=== PATIENT | male | born 1960 | race Two or more races ===

== ENCOUNTER 2016-11-22 18:33 | Inpatient (IN) | payer MEDICARE, OTHER ==
[~2016-11-22] VITALS: Ht 170.2 cm; Wt 79.4 kg
[2016-11-22 19:43] LABS: Basophils # (auto) 0 uL; Basophils % (auto) 0.1 % (0.0-2.0); Eosinophils # (auto) 0 uL; Eosinophils % (auto) 0.1 % (0.0-7.0); Hemoglobin 15.6 g/dL (13.5-17.5); Lymphocytes # (auto) 1.3 uL; Lymphocytes % (auto) 26.6 % (10.0-50.0); Mean Corpuscular Hemoglobin 28.1 pg (28.0-32.0); Mean Corpuscular Hgb Conc. 33.1 g/dL (32.0-36.0); Mean Corpuscular Volume 84.9 fL (80.0-100.0); Monocytes # (auto) 0.6 uL; Monocytes % (auto) 11.8 % (0.0-12.0); Neutrophils % (auto) 61.4 % (37.0-80.0); Platelet Count (auto) 147 10^3/uL (140-450); Red Cell Distribution Width 13.8 % (11.6-16.0); White Blood Cell 4.8 10^3/uL (4.4-10.8)
[2016-11-22 19:59] LABS: INR 1.02 (0.9-1.15); Partial Thromboplastin Time 31.4 sec (22.64-33.71); Prothrombin Time 10.5 sec (9.37-12.3)
[2016-11-22 20:01] LABS: Albumin 3.1 g/dL (3.4-5.0); Alkaline Phosphatase 127 U/L (45-117); Anion Gap 12 (5-15); Aspartate Aminotransferase 20 U/L (15-37); BUN/Creatinine Ratio 21.9; Bilirubin, Total 0.4 mg/dL (0.2-1.0); Blood Urea Nitrogen 16 mg/dL (7-18); Calcium 8.2 mg/dL (8.5-10.1); Carbon Dioxide 31 mmol/L (21-32); Chloride 96 mmol/L (98-107); GFR African American 142 mL/min; GFR Non-African American 118 mL/min; Glucose 311 mg/dL (74-106); Potassium 3.9 mmol/L (3.5-5.1); Sodium 139 mmol/L (136-145); Total Protein 6.7 g/dL (6.4-8.2)
[2016-11-22 21:15] LABS: Urine RBC None Seen /hpf (0 - 3)
[2016-11-22 21:23] LABS: Urine Bilirubin Negative (Negative); Urine Blood Negative /uL (Negative); Urine Color Yellow (Yellow); Urine Glucose 4+ mg/dL (Normal); Urine Ketone 3+ (Negative); Urine Nitrite Negative (Negative); Urine Urobilinogen Normal (Negative); Urine pH 5.5 (5.0-8.0)
[2016-11-22] MEDS ORDERED: SODIUM CHLORIDE 0.9% 1,000 ML IV ONE (22:00)
[2016-11-22] MEDS ORDERED: InsuLIN REG 1unit/0.01ml Soln (100units/ml) SC ONE (22:30)
[2016-11-22] MEDS ORDERED: methylPREDNISolone SOD SUCC 125 MG/2 ML VL IV ONE (23:00)
[2016-11-22] MEDS ORDERED: DEXTROSE (50%) 50ML SYRG IV PRN (23:00)
[2016-11-22] MEDS ORDERED: ONDANSETRON HCL 4 MG/2 ML VIAL IV PRN (23:00)
[2016-11-22] MEDS ORDERED: LACTULOSE 20Gm/30ML SOLN PO PRN (23:00)
[2016-11-23 00:15] VITALS: BP 122/47
[2016-11-23] MEDS: SODIUM CHLORIDE 0.9% 1,000 ML IV SCH ×3 (00:44→14:49)
[2016-11-23 00:59] VITALS: BP 148/91
[2016-11-23] MEDS: IPRATROPIUM BROM 0.5 MG/2.5ML INH SOL NEB SCH ×4 (01:59→14:00)
[2016-11-23] MEDS: ALBUTEROL SULF 2.5 MG/0.5ML(0.5%) NEB SOLN NEB SCH ×4 (01:59→14:00)
[2016-11-23] MEDS: ACCU-CHEK COMFORT CURVE STRIP VI SCH ×4 (02:21→14:22)
[2016-11-23] MEDS: InsuLIN REG 1unit/0.01ml Soln (100units/ml) SC SCH ×4 (02:23→14:22)
[2016-11-23 05:00] VITALS: BP 143/80
[2016-11-23 06:09] LABS: Basophils # (auto) 0 uL; Basophils % (auto) 0.2 % (0.0-2.0); Eosinophils # (auto) 0 uL; Hematocrit 46.3 % (41.0-53.0); Hemoglobin 15.1 g/dL (13.5-17.5); Lymphocytes # (auto) 0.7 uL; Lymphocytes % (auto) 15.5 % (10.0-50.0); Mean Corpuscular Hemoglobin 27.8 pg (28.0-32.0); Mean Corpuscular Hgb Conc. 32.7 g/dL (32.0-36.0); Mean Corpuscular Volume 85.1 fL (80.0-100.0); Mean Platelet Volume 8.9 fL (7.4-10.4); Monocytes # (auto) 0.1 uL; Monocytes % (auto) 3.2 % (0.0-12.0); Neutrophils # (auto) 3.7 uL; Neutrophils % (auto) 81.1 % (37.0-80.0); Platelet Count (auto) 150 10^3/uL (140-450); Red Cell Distribution Width 13.9 % (11.6-16.0); White Blood Cell 4.6 10^3/uL (4.4-10.8)
[2016-11-23 06:34] LABS: Albumin 2.8 g/dL (3.4-5.0); BUN/Creatinine Ratio 27.5; Calcium 7.5 mg/dL (8.5-10.1); Potassium 3.5 mmol/L (3.5-5.1)
[2016-11-23 06:38] LABS: Bilirubin, Total 0.3 mg/dL (0.2-1.0); Total Protein 6.7 g/dL (6.4-8.2)
[2016-11-23 09:00] VITALS: BP 116/64
[2016-11-23] MEDS ORDERED: ENOXAPARIN SOD 40 MG/0.4 ML SYRINGE SC SCH (10:00)
[2016-11-23] MEDS ORDERED: methylPREDNISolone SOD SUCC 125 MG/2 ML VL IV SCH (10:00)
[2016-11-23] MEDS ORDERED: ENOXAPARIN SOD 30 MG/0.3 ML SYRINGE SC SCH (10:00)
[2016-11-23 13:00] VITALS: BP 122/70
[2016-11-23] MEDS ORDERED: AZITHROMYCIN 250 MG TAB PO ONE (16:15)
[2016-11-23] MEDS ORDERED: ALBUAER3 IN ×2 (16:23→16:24)
[2016-11-23 17:40] VITALS: BP 122/70
== END 2016-11-23 17:40 | disposition home health service (06) | DRG 917 ==
LOC: ER 18:44 → TELE 18:45 → TELE-WESTW 18:45
PROVIDERS: ADMIT Family Medicine; ATTEND Internal Medicine
DX: T42.6X1A Poisoning by other antiepileptic and sedative-hypnotic drugs, accidental (unintentional), initial encounter (principal); G92 Toxic encephalopathy; E44.0 Moderate protein-calorie malnutrition; J96.10 Chronic respiratory failure, unspecified whether with hypoxia or hypercapnia; E11.65 Type 2 diabetes mellitus with hyperglycemia; I25.10 Atherosclerotic heart disease of native coronary artery without angina pectoris; J44.9 Chronic obstructive pulmonary disease, unspecified; E03.9 Hypothyroidism, unspecified; Z82.49 Family history of ischemic heart disease and other diseases of the circulatory system; F17.210 Nicotine dependence, cigarettes, uncomplicated; E87.8 Other disorders of electrolyte and fluid balance, not elsewhere classified; F19.10 Other psychoactive substance abuse, uncomplicated; T40.2X1A Poisoning by other opioids, accidental (unintentional), initial encounter; J06.9 Acute upper respiratory infection, unspecified; Z68.27 Body mass index [BMI] 27.0-27.9, adult; I25.2 Old myocardial infarction; Z90.49 Acquired absence of other specified parts of digestive tract; Z98.890 Other specified postprocedural states; Z83.3 Family history of diabetes mellitus; Y92.89 Other specified places as the place of occurrence of the external cause
CPT/HCPCS: 36415; 70450; 71010; 80053; 80320; 81001; 82962; 83036; 84484; 85025; 85049; 85610; 85730; 93005; 94640; 94761; 96361; 96372; 96374; G0434; J1815

== ENCOUNTER 2020-11-15 15:11 | Inpatient (IN) | payer OTHER ==
[~2020-11-15] VITALS: Ht 182.9 cm; Wt 82.4 kg
[~2020-11-15 15:11] MED LIST: ALBUAER3 IN
[2020-11-15] MEDS ORDERED: SODIUM CHLORIDE 0.9% 1,000 ML IV ONE ×3 (15:30→19:15)
[2020-11-15] MEDS ORDERED: PIPERACILLIN-TAZOB 3.375GM 100 ML IV ONE (15:30)
[2020-11-15 16:27] LABS: Urine Bacteria FEW /hpf (None Seen); Urine Blood 1+ /uL (Negative); Urine Hyaline Cast MANY /lpf (0 - 2); Urine Mucus FEW (None Seen); Urine Specific Gravity 1.017 (1.001-1.035); Urine WBC 5 /hpf (0 - 3)
[2020-11-15 16:39] LABS: Basophils # (auto) 0 10 ^3/uL (0-0.2); Basophils % (auto) 0.1 % (0.0-2.0); Eosinophils # (auto) 0 10 ^3/uL (0-0.8); Lymphocytes # (auto) 0.7 10 ^3/uL (0.4-5.4); Monocytes # (auto) 0.4 10 ^3/uL (0-1.3)
[2020-11-15 16:41] LABS: Eosinophils % (auto) 0.1 % (0.0-7.0); Hematocrit 50.2 % (41.0-53.0); Hemoglobin 16.1 g/dL (13.5-17.5); Lymphocytes % (auto) 7.4 % (10.0-50.0); Mean Corpuscular Hemoglobin 24.8 pg (28.0-32.0); Mean Corpuscular Volume 77.4 fL (80.0-100.0); Monocytes % (auto) 4.2 % (0.0-12.0); Neutrophils # (auto) 8.3 10 ^3/uL (1.6-8.6); Neutrophils % (auto) 88.2 % (37.0-80.0); Nucleated Red Blood Cells % 0.7 %; Platelet Count (auto) 157 10^3/uL (140-450); Red Blood Cells 6.48 10^6/uL (4.5-5.90); Red Cell Distribution Width 18.3 % (11.8-14.3); White Blood Cell 9.5 10^3/uL (4.4-10.8)
[2020-11-15 16:47] LABS: INR 2.11 (0.9-1.15); Partial Thromboplastin Time 44.4 sec (23.0-31.2)
[2020-11-15 16:54] LABS: Albumin 1.9 g/dL (3.4-5.0); Calcium 7.9 mg/dL (8.5-10.1); Potassium 4.9 mmol/L (3.5-5.1)
[2020-11-15 17:00] LABS: BUN/Creatinine Ratio 34.9; Bilirubin, Total 2.3 mg/dL (0.2-1.0); Total Protein 6.1 g/dL (6.4-8.2)
[2020-11-15] MEDS ORDERED: AZITHROMYCIN 500MG/ 250ML 250 ML IV ONE (17:00)
[2020-11-15] MEDS ORDERED: DexAMETHasone SOD PHOS 10MG/1ML VIAL INJ IV ONE (17:00)
[2020-11-15 17:02] LABS: Lactic Acid w/Reflex 6.4 mmol/L (0.4-2.0)
[2020-11-15] MEDS ORDERED: FAMOTIDINE (10MG/ML) 2ML VL IV ONE (17:15)
[2020-11-15 17:45] VITALS: BP 156/103
[2020-11-15] MEDS ORDERED: MIDAZOLAM DRIP 50 mg/50mL 50 ML IV ONE (17:54)
[2020-11-15] MEDS ORDERED: SODIUM BICARBONATE 8.4 % INJ 50ML VIAL IV ONE (17:58)
[2020-11-15] MEDS ORDERED: PROPOFOL 100 ML IV ONE (19:01)
[2020-11-15 19:06] LABS: CRP High Sensitivity 7.59 mg/dL (< 0.3)
[2020-11-15] MEDS ORDERED: DOPamine 1600MCG/ML D5W 250 ML IV ONE (19:10)
[2020-11-15] MEDS ORDERED: ALBUTEROL SULF 2.5 MG/0.5ML(0.5%) NEB SOLN NEB PRN (19:15)
[2020-11-15] MEDS ORDERED: VANCOMYCIN PER PHARMACY 1,000 MG IV SCH (19:15)
[2020-11-15] MEDS ORDERED: NITROGLYCERIN 0.4 MG SL TAB SL PRN (19:15)
[2020-11-15] MEDS ORDERED: NOREPINEPHRINE 8 MG/250ML KIT 250 ML IV SCH (19:15)
[2020-11-15] MEDS ORDERED: MORPHINE SULF INJ 2 MG/ML SYRINGE 1ML IV PRN (19:15)
[2020-11-15] MEDS: MIDAZOLAM DRIP 50 mg/50mL 50 ML IV SCH (19:30)
[2020-11-15] MEDS: PROPOFOL 100 ML IV SCH (19:30)
[2020-11-15] MEDS ORDERED: REMDESIVIR PER PHARMACY 0 ML IV SCH (19:30)
[2020-11-15] MEDS ORDERED: ALBUTEROL SULF HFA 90MCG INH 200DOSE IN PRN (19:45)
[2020-11-15] MEDS: NOREPINEPHRINE 8 MG/250ML KIT 250 ML IV SCH (19:50)
[2020-11-15] MEDS ORDERED: REMDESIVIR 200 MG in NS 210ml LOADING DOSE ADULT IV ONE (20:00)
[2020-11-15] MEDS: InsuLIN REG 1unit/0.01ml Soln (100units/ml) SC SCH ×2 (21:44→23:59)
[2020-11-15] MEDS: ACCU-CHEK COMFORT CURVE STRIP VI SCH ×2 (21:44→23:53)
[2020-11-15] MEDS: VANCOMYCIN 750mg/250ml 250 ML IV SCH (21:54)
[2020-11-15] MEDS: FAMOTIDINE (10MG/ML) 2ML VL IV SCH (22:00)
[2020-11-15] MEDS: PIPERACILLIN-TAZO 4.5GM 100 ML IV SCH (23:53)
[2020-11-16] MEDS: DOPamine 1600MCG/ML D5W 250 ML IV SCH ×2 (00:05→13:38)
[2020-11-16 01:12] VITALS: BP 134/78
[2020-11-16] MEDS: InsuLIN REG 1unit/0.01ml Soln (100units/ml) SC SCH ×5 (04:19→21:17)
[2020-11-16] MEDS: ACCU-CHEK COMFORT CURVE STRIP VI SCH ×5 (04:26→21:17)
[2020-11-16] MEDS: PIPERACILLIN-TAZO 4.5GM 100 ML IV SCH ×3 (05:56→23:05)
[2020-11-16 06:30] VITALS: BP 117/68
[2020-11-16 06:57] LABS: Lactic Acid w/Reflex 3.3 mmol/L (0.4-2.0)
[2020-11-16 07:11] LABS: Basophils # (auto) 0 10 ^3/uL (0-0.2); Basophils % (auto) 0.2 % (0.0-2.0); Eosinophils # (auto) 0 10 ^3/uL (0-0.8); Monocytes # (auto) 0.3 10 ^3/uL (0-1.3); Monocytes % (auto) 3.1 % (0.0-12.0)
[2020-11-16 07:12] LABS: Hematocrit 46.1 % (41.0-53.0); Hemoglobin 14.6 g/dL (13.5-17.5); Lymphocytes # (auto) 0.6 10 ^3/uL (0.4-5.4); Lymphocytes % (auto) 5.5 % (10.0-50.0); Mean Corpuscular Hemoglobin 24.6 pg (28.0-32.0); Mean Corpuscular Hgb Conc. 31.7 g/dL (32.0-36.0); Mean Corpuscular Volume 77.7 fL (80.0-100.0); Neutrophils # (auto) 9.6 10 ^3/uL (1.6-8.6); Neutrophils % (auto) 91.2 % (37.0-80.0); Nucleated Red Blood Cells % 0.3 %; Platelet Count (auto) 144 10^3/uL (140-450); Red Blood Cells 5.93 10^6/uL (4.5-5.90); Red Cell Distribution Width 18.6 % (11.8-14.3); White Blood Cell 10.5 10^3/uL (4.4-10.8)
[2020-11-16 07:42] LABS: Potassium 4.7 mmol/L (3.5-5.1)
[2020-11-16 07:59] LABS: Albumin 1.8 g/dL (3.4-5.0); BUN/Creatinine Ratio 35.9; Bilirubin, Total 1.5 mg/dL (0.2-1.0); CRP High Sensitivity 7.14 mg/dL (< 0.3); Calcium 7.5 mg/dL (8.5-10.1); Total Protein 5.8 g/dL (6.4-8.2)
[2020-11-16] MEDS: DexAMETHasone SOD PHOS 10MG/1ML VIAL INJ IV SCH (08:01)
[2020-11-16] MEDS: VANCOMYCIN 750mg/250ml 250 ML IV SCH ×2 (08:53→20:30)
[2020-11-16] MEDS ORDERED: ACETAMINOPHEN 650 mg PER 20.3 mL UD GT ONE (09:00)
[2020-11-16] MEDS: FAMOTIDINE (10MG/ML) 2ML VL IV SCH ×2 (10:00→23:05)
[2020-11-16] MEDS: ENOXAPARIN SOD 40 MG/0.4 ML SYRINGE SC SCH (10:00)
[2020-11-16] MEDS ORDERED: METF-370 PO (10:31)
[2020-11-16] MEDS ORDERED: SIMV10TA84 PO (10:31)
[2020-11-16] MEDS ORDERED: GABA100C9 PO (10:31)
[2020-11-16 11:10] VITALS: BP 113/66
[2020-11-16] MEDS: REMDESIVIR 100mg 100 MG in SODIUM CHL 0.9% 230 ML IV SCH (17:00)
[2020-11-16] MEDS: NOREPINEPHRINE 8 MG/250ML KIT 250 ML IV SCH (19:50)
[2020-11-16] MEDS: PROPOFOL 100 ML IV SCH (19:53)
[2020-11-16 20:00] VITALS: BP 124/73
[2020-11-16] MEDS: MIDAZOLAM DRIP 50 mg/50mL 50 ML IV SCH (20:30)
[2020-11-16] MEDS: DEXTROSE (50%) 50ML SYRG IV PRN (21:19)
[2020-11-17] MEDS: InsuLIN REG 1unit/0.01ml Soln (100units/ml) SC SCH ×6 (00:45→21:20)
[2020-11-17] MEDS: ACCU-CHEK COMFORT CURVE STRIP VI SCH ×6 (00:45→21:15)
[2020-11-17] MEDS: DEXTROSE (50%) 50ML SYRG IV PRN (00:55)
[2020-11-17] MEDS: PIPERACILLIN-TAZO 4.5GM 100 ML IV SCH ×3 (06:47→22:25)
[2020-11-17 06:50] LABS: Basophils # (auto) 0 10 ^3/uL (0-0.2); Eosinophils # (auto) 0 10 ^3/uL (0-0.8); Lymphocytes # (auto) 0.6 10 ^3/uL (0.4-5.4); Lymphocytes % (auto) 4.9 % (10.0-50.0); Monocytes # (auto) 0.6 10 ^3/uL (0-1.3)
[2020-11-17 06:52] LABS: Basophils % (auto) 0.1 % (0.0-2.0); Hematocrit 42.4 % (41.0-53.0); Hemoglobin 13.5 g/dL (13.5-17.5); Mean Corpuscular Hemoglobin 24.9 pg (28.0-32.0); Mean Corpuscular Hgb Conc. 31.8 g/dL (32.0-36.0); Mean Corpuscular Volume 78.4 fL (80.0-100.0); Monocytes % (auto) 4.9 % (0.0-12.0); Neutrophils # (auto) 11.6 10 ^3/uL (1.6-8.6); Neutrophils % (auto) 90.1 % (37.0-80.0); Nucleated Red Blood Cells % 0.3 %; Platelet Count (auto) 98 10^3/uL (140-450); Red Blood Cells 5.41 10^6/uL (4.5-5.90); Red Cell Distribution Width 18.3 % (11.8-14.3); White Blood Cell 12.9 10^3/uL (4.4-10.8)
[2020-11-17 06:55] VITALS: BP 113/74
[2020-11-17 07:05] LABS: Potassium 4.3 mmol/L (3.5-5.1)
[2020-11-17 07:18] LABS: Albumin 1.7 g/dL (3.4-5.0); BUN/Creatinine Ratio 31.3; Bilirubin, Total 1.5 mg/dL (0.2-1.0); CRP High Sensitivity 4.44 mg/dL (< 0.3); Calcium 7.7 mg/dL (8.5-10.1); Total Protein 5.7 g/dL (6.4-8.2)
[2020-11-17] MEDS: MIDAZOLAM DRIP 50 mg/50mL 50 ML IV SCH (08:57)
[2020-11-17] MEDS: DexAMETHasone SOD PHOS 10MG/1ML VIAL INJ IV SCH (10:00)
[2020-11-17] MEDS: ENOXAPARIN SOD 40 MG/0.4 ML SYRINGE SC SCH (10:00)
[2020-11-17] MEDS: DOPamine 1600MCG/ML D5W 250 ML IV SCH (11:26)
[2020-11-17] MEDS: VANCOMYCIN 1GM/250ML 250 ML IV SCH ×2 (11:26→22:25)
[2020-11-17] MEDS: FAMOTIDINE (10MG/ML) 2ML VL IV SCH ×2 (11:27→22:25)
[2020-11-17 14:10] VITALS: BP 147/81
[2020-11-17] MEDS: REMDESIVIR 100mg 100 MG in SODIUM CHL 0.9% 230 ML IV SCH (15:17)
[2020-11-17] MEDS: PROPOFOL 100 ML IV SCH (19:00)
[2020-11-17] MEDS: NOREPINEPHRINE 8 MG/250ML KIT 250 ML IV SCH (19:15)
[2020-11-17 19:35] VITALS: BP 130/78
[2020-11-17 22:36] VITALS: BP 140/33
[2020-11-18] MEDS: ACCU-CHEK COMFORT CURVE STRIP VI SCH ×6 (01:09→20:07)
[2020-11-18] MEDS: InsuLIN REG 1unit/0.01ml Soln (100units/ml) SC SCH ×6 (01:10→20:00)
[2020-11-18 02:23] VITALS: BP 152/89
[2020-11-18] MEDS: DOPamine 1600MCG/ML D5W 250 ML IV SCH ×2 (02:24→20:47)
[2020-11-18] MEDS: ACETAMINOPHEN 650 mg PER 20.3 mL UD GT PRN (04:20)
[2020-11-18] MEDS: PIPERACILLIN-TAZO 4.5GM 100 ML IV SCH ×3 (06:10→22:20)
[2020-11-18 06:50] VITALS: BP 141/84
[2020-11-18 09:09] LABS: Basophils # (auto) 0 10 ^3/uL (0-0.2); Basophils % (auto) 0.2 % (0.0-2.0); Eosinophils # (auto) 0 10 ^3/uL (0-0.8); Hematocrit 49.7 % (41.0-53.0); Lymphocytes # (auto) 0.6 10 ^3/uL (0.4-5.4); Platelet Count (auto) 64 10^3/uL (140-450)
[2020-11-18 09:11] LABS: Hemoglobin 15.3 g/dL (13.5-17.5); Lymphocytes % (auto) 5.3 % (10.0-50.0); Mean Corpuscular Hemoglobin 24.5 pg (28.0-32.0); Mean Corpuscular Hgb Conc. 30.8 g/dL (32.0-36.0); Mean Corpuscular Volume 79.6 fL (80.0-100.0); Monocytes # (auto) 0.7 10 ^3/uL (0-1.3); Monocytes % (auto) 6.3 % (0.0-12.0); Neutrophils # (auto) 9.8 10 ^3/uL (1.6-8.6); Neutrophils % (auto) 88.2 % (37.0-80.0); Nucleated Red Blood Cells % 0.6 %; Red Blood Cells 6.25 10^6/uL (4.5-5.90); White Blood Cell 11.1 10^3/uL (4.4-10.8)
[2020-11-18] MEDS: VANCOMYCIN 1GM/250ML 250 ML IV SCH ×2 (09:23→22:20)
[2020-11-18] MEDS: FAMOTIDINE (10MG/ML) 2ML VL IV SCH ×2 (09:25→22:20)
[2020-11-18] MEDS: DexAMETHasone SOD PHOS 10MG/1ML VIAL INJ IV SCH (09:25)
[2020-11-18] MEDS: ENOXAPARIN SOD 40 MG/0.4 ML SYRINGE SC SCH (09:25)
[2020-11-18 09:45] LABS: Potassium 3.7 mmol/L (3.5-5.1)
[2020-11-18 10:00] LABS: Albumin 1.8 g/dL (3.4-5.0); BUN/Creatinine Ratio 23.5; Bilirubin, Total 1.3 mg/dL (0.2-1.0); CRP High Sensitivity 2.71 mg/dL (< 0.3); Calcium 7.8 mg/dL (8.5-10.1); Total Protein 6.2 g/dL (6.4-8.2)
[2020-11-18 12:12] VITALS: BP 118/73
[2020-11-18 16:20] VITALS: BP 134/91
[2020-11-18] MEDS: REMDESIVIR 100mg 100 MG in SODIUM CHL 0.9% 230 ML IV SCH (17:00)
[2020-11-18 18:25] VITALS: BP 154/93
[2020-11-18] MEDS: NOREPINEPHRINE 8 MG/250ML KIT 250 ML IV SCH (18:41)
[2020-11-18] MEDS: PROPOFOL 100 ML IV SCH (18:42)
[2020-11-18] MEDS: MIDAZOLAM DRIP 50 mg/50mL 50 ML IV SCH (20:30)
[2020-11-18 22:40] VITALS: BP 115/72
[2020-11-19] MEDS: ACCU-CHEK COMFORT CURVE STRIP VI SCH ×6 (00:59→20:22)
[2020-11-19] MEDS: InsuLIN REG 1unit/0.01ml Soln (100units/ml) SC SCH ×6 (01:05→20:23)
[2020-11-19 02:20] VITALS: BP 135/73
[2020-11-19] MEDS: ACETAMINOPHEN 650 mg PER 20.3 mL UD GT PRN (03:13)
[2020-11-19 06:22] VITALS: BP 134/79
[2020-11-19] MEDS: PIPERACILLIN-TAZO 4.5GM 100 ML IV SCH ×3 (06:52→21:55)
[2020-11-19 07:54] LABS: Basophils # (auto) 0 10 ^3/uL (0-0.2); Basophils % (auto) 0.1 % (0.0-2.0); Eosinophils # (auto) 0 10 ^3/uL (0-0.8); Lymphocytes # (auto) 0.8 10 ^3/uL (0.4-5.4); Neutrophils # (auto) 10.3 10 ^3/uL (1.6-8.6)
[2020-11-19 07:56] LABS: Hematocrit 50.1 % (41.0-53.0); Hemoglobin 15.8 g/dL (13.5-17.5); Lymphocytes % (auto) 6.4 % (10.0-50.0); Mean Corpuscular Hemoglobin 24.7 pg (28.0-32.0); Mean Corpuscular Hgb Conc. 31.6 g/dL (32.0-36.0); Mean Corpuscular Volume 78.2 fL (80.0-100.0); Monocytes # (auto) 0.7 10 ^3/uL (0-1.3); Monocytes % (auto) 5.7 % (0.0-12.0); Neutrophils % (auto) 87.8 % (37.0-80.0); Nucleated Red Blood Cells % 0.9 %; Platelet Count (auto) 66 10^3/uL (140-450); Red Blood Cells 6.41 10^6/uL (4.5-5.90); Red Cell Distribution Width 18.9 % (11.8-14.3); White Blood Cell 11.7 10^3/uL (4.4-10.8)
[2020-11-19 08:05] LABS: Potassium 3.3 mmol/L (3.5-5.1)
[2020-11-19 08:21] LABS: Albumin 1.7 g/dL (3.4-5.0); BUN/Creatinine Ratio 21.2; Bilirubin, Total 1.9 mg/dL (0.2-1.0); CRP High Sensitivity 1.9 mg/dL (< 0.3); Calcium 7.7 mg/dL (8.5-10.1); Total Protein 6.1 g/dL (6.4-8.2)
[2020-11-19] MEDS: MIDAZOLAM DRIP 50 mg/50mL 50 ML IV SCH ×3 (09:00→16:10)
[2020-11-19] MEDS: PROPOFOL 100 ML IV SCH ×2 (09:05→13:00)
[2020-11-19] MEDS: VANCOMYCIN 1GM/250ML 250 ML IV SCH ×2 (10:00→18:16)
[2020-11-19] MEDS: DexAMETHasone SOD PHOS 10MG/1ML VIAL INJ IV SCH (10:28)
[2020-11-19] MEDS: ENOXAPARIN SOD 40 MG/0.4 ML SYRINGE SC SCH (10:28)
[2020-11-19] MEDS: FAMOTIDINE (10MG/ML) 2ML VL IV SCH ×2 (10:28→21:54)
[2020-11-19 13:31] VITALS: BP 133/85
[2020-11-19] MEDS: DOPamine 1600MCG/ML D5W 250 ML IV SCH (14:30)
[2020-11-19] MEDS: NOREPINEPHRINE 8 MG/250ML KIT 250 ML IV SCH (14:30)
[2020-11-19] MEDS: FUROSEMIDE 20 MG/2 ML VIAL IV SCH (18:00)
[2020-11-19] MEDS: REMDESIVIR 100mg 100 MG in SODIUM CHL 0.9% 230 ML IV SCH (18:04)
[2020-11-19 18:35] VITALS: BP 107/73
[2020-11-19 22:40] VITALS: BP 112/68
[2020-11-20] MEDS: ACCU-CHEK COMFORT CURVE STRIP VI SCH ×7 (00:03→23:58)
[2020-11-20 02:32] VITALS: BP 129/85
[2020-11-20] MEDS: InsuLIN REG 1unit/0.01ml Soln (100units/ml) SC SCH ×6 (04:00→20:00)
[2020-11-20] MEDS: PIPERACILLIN-TAZO 4.5GM 100 ML IV SCH ×3 (06:36→20:42)
[2020-11-20] MEDS: VANCOMYCIN 1GM/250ML 250 ML IV SCH ×2 (06:36→18:30)
[2020-11-20] MEDS: FUROSEMIDE 20 MG/2 ML VIAL IV SCH ×2 (06:51→18:30)
[2020-11-20 07:12] VITALS: BP 97/64
[2020-11-20] MEDS ORDERED: POTASSIUM CHL 20 Meq TABLET PO ONE (07:30)
[2020-11-20 09:16] LABS: Eosinophils # (auto) 0 10 ^3/uL (0-0.8); Hemoglobin 15.9 g/dL (13.5-17.5); Lymphocytes # (auto) 0.7 10 ^3/uL (0.4-5.4); Lymphocytes % (auto) 4.8 % (10.0-50.0); Mean Corpuscular Hemoglobin 24.2 pg (28.0-32.0); Neutrophils # (auto) 12.8 10 ^3/uL (1.6-8.6)
[2020-11-20 09:17] LABS: Basophils # (auto) 0 10 ^3/uL (0-0.2); Basophils % (auto) 0.3 % (0.0-2.0); Mean Corpuscular Hgb Conc. 31.2 g/dL (32.0-36.0); Mean Corpuscular Volume 77.7 fL (80.0-100.0); Monocytes # (auto) 0.8 10 ^3/uL (0-1.3); Monocytes % (auto) 5.7 % (0.0-12.0); Neutrophils % (auto) 89.2 % (37.0-80.0); Nucleated Red Blood Cells % 0.5 %; Platelet Count (auto) 65 10^3/uL (140-450); Red Blood Cells 6.57 10^6/uL (4.5-5.90); Red Cell Distribution Width 18.9 % (11.8-14.3); White Blood Cell 14.3 10^3/uL (4.4-10.8)
[2020-11-20] MEDS: DOPamine 1600MCG/ML D5W 250 ML IV SCH (09:24)
[2020-11-20 09:40] LABS: Alanine Aminotransferase 36 U/L (16-61); Alkaline Phosphatase 259 U/L (45-117); Aspartate Aminotransferase 29 U/L (15-37); BUN/Creatinine Ratio 31.5; Bilirubin, Total 1.8 mg/dL (0.2-1.0); Blood Urea Nitrogen 23 mg/dL (7-18); Carbon Dioxide 19 mmol/L (21-32); GFR African American 140 mL/min; GFR Non-African American 116 mL/min; Total Protein 5.5 g/dL (6.4-8.2)
[2020-11-20 09:45] LABS: Glucose 363 mg/dL (74-106)
[2020-11-20] MEDS: DexAMETHasone SOD PHOS 10MG/1ML VIAL INJ IV SCH (10:35)
[2020-11-20] MEDS: FAMOTIDINE (10MG/ML) 2ML VL IV SCH ×2 (10:35→20:42)
[2020-11-20] MEDS: ENOXAPARIN SOD 40 MG/0.4 ML SYRINGE SC SCH (10:35)
[2020-11-20 11:10] LABS: Albumin 1.7 g/dL (3.4-5.0); Calcium 7.5 mg/dL (8.5-10.1)
[2020-11-20 11:11] LABS: Anion Gap 23 (5-15); Chloride 103 mmol/L (98-107); Sodium 145 mmol/L (136-145)
[2020-11-20 11:15] LABS: Potassium 2.7 mmol/L (3.5-5.1)
[2020-11-20] MEDS ORDERED: POTASSIUM CHLORIDE 60 MEQ, LIDOCAINE 1% (LOCAL ANESTH.) 6 ML in SODIUM CHL 0.9% 500 ML IV ONE (11:30)
[2020-11-20 13:14] VITALS: BP 76/53
[2020-11-20] MEDS ORDERED: FUROSEMIDE 40 MG/4 ML VIAL ONE (17:54)
[2020-11-20 18:25] VITALS: BP 108/73
[2020-11-20] MEDS: PROPOFOL 100 ML IV SCH (19:14)
[2020-11-20] MEDS: NOREPINEPHRINE 8 MG/250ML KIT 250 ML IV SCH (19:20)
[2020-11-20] MEDS: MIDAZOLAM DRIP 50 mg/50mL 50 ML IV SCH (20:30)
[2020-11-20] MEDS: ACETAMINOPHEN 650 mg PER 20.3 mL UD GT PRN (20:33)
[2020-11-20 22:25] VITALS: BP 106/67
[2020-11-21] MEDS: InsuLIN REG 1unit/0.01ml Soln (100units/ml) SC SCH ×6 (00:02→20:54)
[2020-11-21] MEDS: DOPamine 1600MCG/ML D5W 250 ML IV SCH ×2 (00:03→22:19)
[2020-11-21 02:15] VITALS: BP 108/71
[2020-11-21] MEDS: ACCU-CHEK COMFORT CURVE STRIP VI SCH ×5 (04:13→20:52)
[2020-11-21 05:12] LABS: Basophils # (auto) 0.1 10 ^3/uL (0-0.2); Basophils % (auto) 0.5 % (0.0-2.0); Eosinophils # (auto) 0 10 ^3/uL (0-0.8); Lymphocytes # (auto) 0.4 10 ^3/uL (0.4-5.4); Monocytes # (auto) 0.5 10 ^3/uL (0-1.3); Monocytes % (auto) 4.3 % (0.0-12.0); Nucleated Red Blood Cells % 0.1 %
[2020-11-21 05:13] LABS: Hematocrit 45.3 % (41.0-53.0); Hemoglobin 14.5 g/dL (13.5-17.5); Lymphocytes % (auto) 3.4 % (10.0-50.0); Mean Corpuscular Hemoglobin 24.8 pg (28.0-32.0); Mean Corpuscular Volume 77.6 fL (80.0-100.0); Neutrophils # (auto) 11.6 10 ^3/uL (1.6-8.6); Neutrophils % (auto) 91.8 % (37.0-80.0); Platelet Count (auto) 71 10^3/uL (140-450); Red Blood Cells 5.83 10^6/uL (4.5-5.90); White Blood Cell 12.7 10^3/uL (4.4-10.8)
[2020-11-21] MEDS: PIPERACILLIN-TAZO 4.5GM 100 ML IV SCH ×3 (05:29→22:19)
[2020-11-21 05:31] LABS: Albumin 1.6 g/dL (3.4-5.0); Calcium 7.6 mg/dL (8.5-10.1); Potassium 3.1 mmol/L (3.5-5.1)
[2020-11-21 05:35] LABS: BUN/Creatinine Ratio 34.1; Bilirubin, Total 1.8 mg/dL (0.2-1.0)
[2020-11-21] MEDS: FUROSEMIDE 20 MG/2 ML VIAL IV SCH ×2 (05:47→17:19)
[2020-11-21] MEDS: VANCOMYCIN 1GM/250ML 250 ML IV SCH ×2 (06:21→17:18)
[2020-11-21 06:35] VITALS: BP 105/67
[2020-11-21] MEDS: DexAMETHasone SOD PHOS 10MG/1ML VIAL INJ IV SCH (07:47)
[2020-11-21] MEDS: FAMOTIDINE (10MG/ML) 2ML VL IV SCH ×2 (07:47→22:19)
[2020-11-21] MEDS: ENOXAPARIN SOD 40 MG/0.4 ML SYRINGE SC SCH (07:47)
[2020-11-21 10:41] LABS: Lactic Acid w/Reflex 4.1 mmol/L (0.4-2.0)
[2020-11-21 15:05] VITALS: BP 105/65
[2020-11-21] MEDS: POTASSIUM CHL 20MEQ/100ML 100 ML IV SCH ×2 (16:15→16:51)
[2020-11-21] MEDS ORDERED: POTASSIUM CHLORIDE 40 MEQ, LIDOCAINE 1% (LOCAL ANESTH.) 4 ML in SODIUM CHL 0.9% 250 ML IV ONE (17:00)
[2020-11-21] MEDS ORDERED: FUROSEMIDE 40 MG/4 ML VIAL ONE (17:16)
[2020-11-21] MEDS: PROPOFOL 100 ML IV SCH (18:16)
[2020-11-21] MEDS: NOREPINEPHRINE 8 MG/250ML KIT 250 ML IV SCH (18:17)
[2020-11-21 19:16] VITALS: BP 107/68
[2020-11-21] MEDS: MIDAZOLAM DRIP 50 mg/50mL 50 ML IV SCH (20:30)
[2020-11-21 22:35] VITALS: BP 97/63
[2020-11-22] MEDS: ACCU-CHEK COMFORT CURVE STRIP VI SCH ×6 (00:41→21:30)
[2020-11-22] MEDS: InsuLIN REG 1unit/0.01ml Soln (100units/ml) SC SCH ×6 (00:44→21:45)
[2020-11-22 02:19] VITALS: BP 97/59
[2020-11-22] MEDS ORDERED: ONDANSETRON HCL 4 MG/2 ML VIAL ONE (04:15)
[2020-11-22] MEDS: PIPERACILLIN-TAZO 4.5GM 100 ML IV SCH ×3 (05:45→23:00)
[2020-11-22] MEDS: VANCOMYCIN 1GM/250ML 250 ML IV SCH ×2 (05:45→18:21)
[2020-11-22] MEDS ORDERED: FUROSEMIDE 40 MG/4 ML VIAL ONE (05:47)
[2020-11-22 06:03] LABS: Basophils # (auto) 0 10 ^3/uL (0-0.2); Eosinophils # (auto) 0 10 ^3/uL (0-0.8); Hemoglobin 13.4 g/dL (13.5-17.5); Mean Corpuscular Hemoglobin 24.3 pg (28.0-32.0); Monocytes # (auto) 0.4 10 ^3/uL (0-1.3); White Blood Cell 10.8 10^3/uL (4.4-10.8)
[2020-11-22 06:06] LABS: Basophils % (auto) 0.1 % (0.0-2.0); Hematocrit 42.5 % (41.0-53.0); Lymphocytes # (auto) 0.5 10 ^3/uL (0.4-5.4); Lymphocytes % (auto) 4.4 % (10.0-50.0); Mean Corpuscular Hgb Conc. 31.5 g/dL (32.0-36.0); Mean Corpuscular Volume 77.3 fL (80.0-100.0); Monocytes % (auto) 3.7 % (0.0-12.0); Neutrophils % (auto) 91.8 % (37.0-80.0); Platelet Count (auto) 75 10^3/uL (140-450); Red Cell Distribution Width 19.2 % (11.8-14.3)
[2020-11-22 06:20] LABS: Albumin 1.5 g/dL (3.4-5.0); Calcium 7.3 mg/dL (8.5-10.1)
[2020-11-22 06:24] LABS: Bilirubin, Total 1.9 mg/dL (0.2-1.0); Total Protein 4.8 g/dL (6.4-8.2)
[2020-11-22 06:50] VITALS: BP 95/54
[2020-11-22] MEDS: POTASSIUM CHL 20MEQ/100ML 100 ML IV SCH ×3 (08:12→11:01)
[2020-11-22] MEDS: FAMOTIDINE (10MG/ML) 2ML VL IV SCH ×2 (08:20→23:00)
[2020-11-22] MEDS: DexAMETHasone SOD PHOS 10MG/1ML VIAL INJ IV SCH (08:20)
[2020-11-22] MEDS: ENOXAPARIN SOD 40 MG/0.4 ML SYRINGE SC SCH (08:21)
[2020-11-22 09:20] VITALS: BP 94/58
[2020-11-22 15:16] VITALS: BP 113/68
[2020-11-22] MEDS: DOPamine 1600MCG/ML D5W 250 ML IV SCH (16:31)
[2020-11-22] MEDS: FUROSEMIDE 40 MG/4 ML VIAL IV SCH (17:12)
[2020-11-22] MEDS: PROPOFOL 100 ML IV SCH (18:07)
[2020-11-22] MEDS: NOREPINEPHRINE 8 MG/250ML KIT 250 ML IV SCH (18:08)
[2020-11-22 18:35] VITALS: BP 115/69
[2020-11-22] MEDS: MIDAZOLAM DRIP 50 mg/50mL 50 ML IV SCH (20:30)
[2020-11-22 22:14] VITALS: BP 101/65
[2020-11-23] MEDS: ACCU-CHEK COMFORT CURVE STRIP VI SCH ×6 (00:30→20:00)
[2020-11-23] MEDS: InsuLIN REG 1unit/0.01ml Soln (100units/ml) SC SCH ×6 (00:40→20:00)
[2020-11-23 02:15] VITALS: BP 112/67
[2020-11-23] MEDS: VANCOMYCIN 1GM/250ML 250 ML IV SCH ×2 (06:27→18:23)
[2020-11-23] MEDS: PIPERACILLIN-TAZO 4.5GM 100 ML IV SCH ×3 (06:28→22:00)
[2020-11-23] MEDS: FUROSEMIDE 40 MG/4 ML VIAL IV SCH (06:28)
[2020-11-23 06:50] VITALS: BP 96/54
[2020-11-23 07:33] LABS: Potassium 3.1 mmol/L (3.5-5.1)
[2020-11-23 07:34] LABS: Basophils # (auto) 0 10 ^3/uL (0-0.2); Eosinophils # (auto) 0 10 ^3/uL (0-0.8); Eosinophils % (auto) 0.1 % (0.0-7.0); Lymphocytes # (auto) 0.5 10 ^3/uL (0.4-5.4); Monocytes # (auto) 0.4 10 ^3/uL (0-1.3); Monocytes % (auto) 3.1 % (0.0-12.0)
[2020-11-23 07:39] LABS: Basophils % (auto) 0.4 % (0.0-2.0); Hematocrit 42.8 % (41.0-53.0); Hemoglobin 13.1 g/dL (13.5-17.5); Lymphocytes % (auto) 4.1 % (10.0-50.0); Mean Corpuscular Hemoglobin 23.8 pg (28.0-32.0); Mean Corpuscular Hgb Conc. 30.5 g/dL (32.0-36.0); Mean Corpuscular Volume 78.1 fL (80.0-100.0); Neutrophils # (auto) 10.7 10 ^3/uL (1.6-8.6); Neutrophils % (auto) 92.3 % (37.0-80.0); Platelet Count (auto) 82 10^3/uL (140-450); Red Blood Cells 5.49 10^6/uL (4.5-5.90); Red Cell Distribution Width 18.8 % (11.8-14.3); White Blood Cell 11.6 10^3/uL (4.4-10.8)
[2020-11-23 07:44] LABS: Albumin 1.5 g/dL (3.4-5.0); BUN/Creatinine Ratio 58.2; Bilirubin, Total 1.5 mg/dL (0.2-1.0); Calcium 7.8 mg/dL (8.5-10.1)
[2020-11-23] MEDS ORDERED: SODIUM CHLORIDE 0.9% 2,000 ML IV ONE (09:00)
[2020-11-23] MEDS: DexAMETHasone SOD PHOS 10MG/1ML VIAL INJ IV SCH (09:02)
[2020-11-23] MEDS: FAMOTIDINE (10MG/ML) 2ML VL IV SCH ×2 (09:02→22:00)
[2020-11-23] MEDS: DOPamine 1600MCG/ML D5W 250 ML IV SCH (09:02)
[2020-11-23] MEDS: ENOXAPARIN SOD 40 MG/0.4 ML SYRINGE SC SCH (09:02)
[2020-11-23] MEDS ORDERED: SODIUM CHLORIDE 0.9% 1,000 ML IV SCH (11:00)
[2020-11-23] MEDS: POTASSIUM CHL 20MEQ/100ML 100 ML IV SCH ×3 (11:03→14:00)
[2020-11-23 13:48] VITALS: BP 101/62
[2020-11-23] MEDS: NOREPINEPHRINE 8 MG/250ML KIT 250 ML IV SCH (18:25)
[2020-11-23] MEDS: PROPOFOL 100 ML IV SCH (18:25)
[2020-11-23 18:40] VITALS: BP 104/64
[2020-11-23] MEDS: MIDAZOLAM DRIP 50 mg/50mL 50 ML IV SCH (20:30)
[2020-11-23 23:10] VITALS: BP 110/67
[2020-11-24 02:20] VITALS: BP 124/77
[2020-11-24] MEDS: ACCU-CHEK COMFORT CURVE STRIP VI SCH ×6 (04:00→20:00)
[2020-11-24] MEDS: InsuLIN REG 1unit/0.01ml Soln (100units/ml) SC SCH ×6 (04:00→20:00)
[2020-11-24] MEDS: DOPamine 1600MCG/ML D5W 250 ML IV SCH ×2 (05:14→23:51)
[2020-11-24] MEDS: PIPERACILLIN-TAZO 4.5GM 100 ML IV SCH ×3 (05:30→21:54)
[2020-11-24] MEDS: VANCOMYCIN 1GM/250ML 250 ML IV SCH ×2 (05:30→18:00)
[2020-11-24 06:20] VITALS: BP 113/73
[2020-11-24 06:57] LABS: Basophils # (auto) 0 10 ^3/uL (0-0.2); Eosinophils # (auto) 0 10 ^3/uL (0-0.8); Hematocrit 40.8 % (41.0-53.0); Hemoglobin 12.7 g/dL (13.5-17.5); Lymphocytes # (auto) 0.4 10 ^3/uL (0.4-5.4); Mean Corpuscular Hemoglobin 24.3 pg (28.0-32.0); Neutrophils # (auto) 12.1 10 ^3/uL (1.6-8.6); Platelet Count (auto) 102 10^3/uL (140-450)
[2020-11-24 07:00] LABS: Basophils % (auto) 0.2 % (0.0-2.0); Lymphocytes % (auto) 2.9 % (10.0-50.0); Mean Corpuscular Hgb Conc. 31.1 g/dL (32.0-36.0); Monocytes # (auto) 0.5 10 ^3/uL (0-1.3); Monocytes % (auto) 4.2 % (0.0-12.0); Neutrophils % (auto) 92.7 % (37.0-80.0); Red Blood Cells 5.23 10^6/uL (4.5-5.90); Red Cell Distribution Width 19.2 % (11.8-14.3); White Blood Cell 13.1 10^3/uL (4.4-10.8)
[2020-11-24 07:20] LABS: Albumin 1.5 g/dL (3.4-5.0); BUN/Creatinine Ratio 63.4; Calcium 7.4 mg/dL (8.5-10.1); Potassium 3.5 mmol/L (3.5-5.1)
[2020-11-24 07:22] LABS: Bilirubin, Total 1.6 mg/dL (0.2-1.0); Total Protein 4.9 g/dL (6.4-8.2)
[2020-11-24] MEDS: ENOXAPARIN SOD 40 MG/0.4 ML SYRINGE SC SCH (08:40)
[2020-11-24] MEDS: FAMOTIDINE (10MG/ML) 2ML VL IV SCH ×2 (08:40→21:54)
[2020-11-24] MEDS: DexAMETHasone SOD PHOS 10MG/1ML VIAL INJ IV SCH (08:40)
[2020-11-24 14:00] VITALS: BP 126/77
[2020-11-24 18:40] VITALS: BP 130/82
[2020-11-24] MEDS: PROPOFOL 100 ML IV SCH (19:00)
[2020-11-24] MEDS: NOREPINEPHRINE 8 MG/250ML KIT 250 ML IV SCH (19:15)
[2020-11-24] MEDS: MIDAZOLAM DRIP 50 mg/50mL 50 ML IV SCH (20:30)
[2020-11-25] VITALS (32 sets, daily range): BP systolic 101–144; BP diastolic 65–89
[2020-11-25] MEDS: ACCU-CHEK COMFORT CURVE STRIP VI SCH ×6 (03:51→20:00)
[2020-11-25] MEDS: InsuLIN REG 1unit/0.01ml Soln (100units/ml) SC SCH ×6 (03:52→20:00)
[2020-11-25] MEDS: PIPERACILLIN-TAZO 4.5GM 100 ML IV SCH ×3 (06:00→21:50)
[2020-11-25] MEDS: VANCOMYCIN 1GM/250ML 250 ML IV SCH ×2 (06:00→18:59)
[2020-11-25 08:29] LABS: Basophils # (auto) 0 10 ^3/uL (0-0.2); Eosinophils # (auto) 0 10 ^3/uL (0-0.8); Eosinophils % (auto) 0.1 % (0.0-7.0); Lymphocytes # (auto) 0.5 10 ^3/uL (0.4-5.4); Monocytes # (auto) 0.9 10 ^3/uL (0-1.3)
[2020-11-25 08:31] LABS: Basophils % (auto) 0.2 % (0.0-2.0); Hematocrit 42.7 % (41.0-53.0); Hemoglobin 13.3 g/dL (13.5-17.5); Lymphocytes % (auto) 3.2 % (10.0-50.0); Mean Corpuscular Hemoglobin 24.6 pg (28.0-32.0); Mean Corpuscular Hgb Conc. 31.3 g/dL (32.0-36.0); Mean Corpuscular Volume 78.6 fL (80.0-100.0); Monocytes % (auto) 5.9 % (0.0-12.0); Neutrophils # (auto) 13.9 10 ^3/uL (1.6-8.6); Neutrophils % (auto) 90.6 % (37.0-80.0); Platelet Count (auto) 150 10^3/uL (140-450); Red Blood Cells 5.42 10^6/uL (4.5-5.90); Red Cell Distribution Width 19.3 % (11.8-14.3); White Blood Cell 15.4 10^3/uL (4.4-10.8)
[2020-11-25 08:42] LABS: Potassium 3.3 mmol/L (3.5-5.1)
[2020-11-25 08:59] LABS: Albumin 1.6 g/dL (3.4-5.0); BUN/Creatinine Ratio 52.1; Bilirubin, Total 1.5 mg/dL (0.2-1.0); Total Protein 5.8 g/dL (6.4-8.2)
[2020-11-25] MEDS: DexAMETHasone SOD PHOS 10MG/1ML VIAL INJ IV SCH (10:00)
[2020-11-25] MEDS: FAMOTIDINE (10MG/ML) 2ML VL IV SCH ×2 (10:00→21:49)
[2020-11-25] MEDS: ENOXAPARIN SOD 40 MG/0.4 ML SYRINGE SC SCH (10:00)
[2020-11-25] MEDS: DOPamine 1600MCG/ML D5W 250 ML IV SCH (18:14)
[2020-11-25] MEDS: PROPOFOL 100 ML IV SCH (19:00)
[2020-11-25] MEDS: NOREPINEPHRINE 8 MG/250ML KIT 250 ML IV SCH (19:15)
[2020-11-25] MEDS: POTASSIUM CHL 20MEQ/100ML 100 ML IV SCH ×2 (20:00→23:00)
[2020-11-25] MEDS: MORPHINE SULFATE 4 MG/ML SYR/VIAL IV PRN (20:00)
[2020-11-25] MEDS: MIDAZOLAM DRIP 50 mg/50mL 50 ML IV SCH (20:30)
[2020-11-26] VITALS (92 sets, daily range): BP systolic 92–160; BP diastolic 55–94
[2020-11-26] MEDS: MORPHINE SULFATE 4 MG/ML SYR/VIAL IV PRN ×5 (04:00→18:58)
[2020-11-26] MEDS: ACCU-CHEK COMFORT CURVE STRIP VI SCH ×6 (04:00→22:10)
[2020-11-26] MEDS: InsuLIN REG 1unit/0.01ml Soln (100units/ml) SC SCH ×6 (04:00→22:00)
[2020-11-26 04:32] LABS: Basophils # (auto) 0 10 ^3/uL (0-0.2); Basophils % (auto) 0.1 % (0.0-2.0); Eosinophils # (auto) 0 10 ^3/uL (0-0.8); Red Cell Distribution Width 19.3 % (11.8-14.3)
[2020-11-26 04:33] LABS: Hematocrit 40.1 % (41.0-53.0); Hemoglobin 12.3 g/dL (13.5-17.5); Lymphocytes # (auto) 0.7 10 ^3/uL (0.4-5.4); Lymphocytes % (auto) 5.4 % (10.0-50.0); Mean Corpuscular Hemoglobin 24.1 pg (28.0-32.0); Mean Corpuscular Hgb Conc. 30.8 g/dL (32.0-36.0); Mean Corpuscular Volume 78.3 fL (80.0-100.0); Monocytes # (auto) 0.7 10 ^3/uL (0-1.3); Monocytes % (auto) 5.7 % (0.0-12.0); Neutrophils # (auto) 10.7 10 ^3/uL (1.6-8.6); Neutrophils % (auto) 88.8 % (37.0-80.0); Platelet Count (auto) 159 10^3/uL (140-450); Red Blood Cells 5.12 10^6/uL (4.5-5.90); White Blood Cell 12.1 10^3/uL (4.4-10.8)
[2020-11-26 04:49] LABS: Albumin 1.5 g/dL (3.4-5.0); Potassium 3.7 mmol/L (3.5-5.1)
[2020-11-26 04:54] LABS: BUN/Creatinine Ratio 57.9; Bilirubin, Total 1.4 mg/dL (0.2-1.0); Total Protein 5.4 g/dL (6.4-8.2)
[2020-11-26] MEDS: VANCOMYCIN 1GM/250ML 250 ML IV SCH ×2 (06:00→20:15)
[2020-11-26] MEDS: PIPERACILLIN-TAZO 4.5GM 100 ML IV SCH ×3 (06:24→22:09)
[2020-11-26] MEDS: FAMOTIDINE (10MG/ML) 2ML VL IV SCH ×2 (09:40→22:09)
[2020-11-26] MEDS: ENOXAPARIN SOD 40 MG/0.4 ML SYRINGE SC SCH (09:40)
[2020-11-26] MEDS: DexAMETHasone SOD PHOS 10MG/1ML VIAL INJ IV SCH (09:41)
[2020-11-26] MEDS: DOPamine 1600MCG/ML D5W 250 ML IV SCH (11:48)
[2020-11-26] MEDS: LEVOTHYROXINE SODIUM 100 MCG/5 ML INJ IV SCH (13:00)
[2020-11-26] MEDS ORDERED: DEXTROSE (50%) 50ML SYRG IV PRN (16:00)
[2020-11-26] MEDS ORDERED: TPN PER PHARMACY 0 ML IV SCH (19:00)
[2020-11-26] MEDS: PROPOFOL 100 ML IV SCH (19:00)
[2020-11-26] MEDS: NOREPINEPHRINE 8 MG/250ML KIT 250 ML IV SCH (19:15)
[2020-11-26] MEDS: MIDAZOLAM DRIP 50 mg/50mL 50 ML IV SCH (20:17)
[2020-11-26] MEDS: ACETAMINOPHEN 650 mg PER 20.3 mL UD GT PRN (21:00)
[2020-11-27] VITALS (96 sets, daily range): BP systolic 76–159; BP diastolic 48–93
[2020-11-27] MEDS: VANCOMYCIN 1GM/250ML 250 ML IV SCH ×2 (05:49→17:41)
[2020-11-27 05:59] LABS: Basophils # (auto) 0 10 ^3/uL (0-0.2); Eosinophils # (auto) 0 10 ^3/uL (0-0.8); Hemoglobin 12.3 g/dL (13.5-17.5); Lymphocytes # (auto) 0.7 10 ^3/uL (0.4-5.4); Mean Corpuscular Hemoglobin 24.5 pg (28.0-32.0)
[2020-11-27 06:01] LABS: Basophils % (auto) 0.2 % (0.0-2.0); Hematocrit 38.7 % (41.0-53.0); Mean Corpuscular Hgb Conc. 31.7 g/dL (32.0-36.0); Mean Corpuscular Volume 77.3 fL (80.0-100.0); Monocytes # (auto) 0.8 10 ^3/uL (0-1.3); Monocytes % (auto) 6.4 % (0.0-12.0); Neutrophils # (auto) 10.6 10 ^3/uL (1.6-8.6); Neutrophils % (auto) 87.4 % (37.0-80.0); Platelet Count (auto) 153 10^3/uL (140-450); Red Blood Cells 5.01 10^6/uL (4.5-5.90); Red Cell Distribution Width 18.6 % (11.8-14.3); White Blood Cell 12.2 10^3/uL (4.4-10.8)
[2020-11-27 06:03] LABS: Albumin 1.6 g/dL (3.4-5.0); Calcium 7.9 mg/dL (8.5-10.1); Magnesium 1.9 mg/dL (1.6-2.6); Potassium 3.3 mmol/L (3.5-5.1)
[2020-11-27 06:07] LABS: BUN/Creatinine Ratio 47.4; Bilirubin, Total 1.6 mg/dL (0.2-1.0); Total Protein 5.7 g/dL (6.4-8.2)
[2020-11-27] MEDS: DOPamine 1600MCG/ML D5W 250 ML IV SCH (06:33)
[2020-11-27] MEDS: PIPERACILLIN-TAZO 4.5GM 100 ML IV SCH ×3 (06:34→22:20)
[2020-11-27] MEDS: ACCU-CHEK COMFORT CURVE STRIP VI SCH ×3 (06:34→17:43)
[2020-11-27] MEDS: InsuLIN REG 1unit/0.01ml Soln (100units/ml) SC SCH ×3 (06:36→17:43)
[2020-11-27] MEDS ORDERED: POTASSIUM PHOSPHATE 26.4 MEQ in SODIUM CHL 0.9% 100 ML IV ONE (08:45)
[2020-11-27] MEDS: DexAMETHasone SOD PHOS 10MG/1ML VIAL INJ IV SCH (10:15)
[2020-11-27] MEDS: FAMOTIDINE (10MG/ML) 2ML VL IV SCH ×2 (10:18→22:20)
[2020-11-27] MEDS: ENOXAPARIN SOD 40 MG/0.4 ML SYRINGE SC SCH (10:21)
[2020-11-27] MEDS: LEVOTHYROXINE SODIUM 100 MCG/5 ML INJ IV SCH (10:21)
[2020-11-27] MEDS ORDERED: ACETAMINOPHEN IV 1000 MG/100ML (10MG/ML) IV PRN ×2 (16:45)
[2020-11-27] MEDS ORDERED: METOPROLOL TARTRATE 1MG/1ML-5ML VIAL IV PRN (18:00)
[2020-11-27] MEDS: PROPOFOL 100 ML IV SCH (18:10)
[2020-11-27] MEDS ORDERED: TPN PER PHARMACY IV NR ×8 (20:00)
[2020-11-27] MEDS: MIDAZOLAM DRIP 50 mg/50mL 50 ML IV SCH (20:30)
[2020-11-27] MEDS: ACETAMINOPHEN 650 mg PER 20.3 mL UD GT PRN (21:00)
[2020-11-27] MEDS: NOREPINEPHRINE 8 MG/250ML KIT 250 ML IV SCH (21:30)
[2020-11-28] VITALS (95 sets, daily range): BP systolic 98–144; BP diastolic 56–74
[2020-11-28] MEDS: DOPamine 1600MCG/ML D5W 250 ML IV SCH (01:23)
[2020-11-28] MEDS: PIPERACILLIN-TAZO 4.5GM 100 ML IV SCH ×3 (06:04→22:04)
[2020-11-28] MEDS: ACCU-CHEK COMFORT CURVE STRIP VI SCH ×4 (06:05→17:42)
[2020-11-28 06:29] LABS: Basophils # (auto) 0 10 ^3/uL (0-0.2); Basophils % (auto) 0.4 % (0.0-2.0); Eosinophils # (auto) 0 10 ^3/uL (0-0.8); Hematocrit 35.8 % (41.0-53.0); Hemoglobin 11.4 g/dL (13.5-17.5); Lymphocytes # (auto) 0.5 10 ^3/uL (0.4-5.4); Lymphocytes % (auto) 5.7 % (10.0-50.0); Mean Corpuscular Hemoglobin 24.9 pg (28.0-32.0); Mean Corpuscular Hgb Conc. 31.9 g/dL (32.0-36.0); Monocytes # (auto) 0.3 10 ^3/uL (0-1.3); Monocytes % (auto) 4.1 % (0.0-12.0); Neutrophils # (auto) 7.3 10 ^3/uL (1.6-8.6); Neutrophils % (auto) 89.8 % (37.0-80.0); Platelet Count (auto) 112 10^3/uL (140-450); Red Blood Cells 4.59 10^6/uL (4.5-5.90); Red Cell Distribution Width 19.3 % (11.8-14.3); White Blood Cell 8.1 10^3/uL (4.4-10.8)
[2020-11-28] MEDS: InsuLIN REG 1unit/0.01ml Soln (100units/ml) SC SCH ×4 (06:33→17:41)
[2020-11-28] MEDS: VANCOMYCIN 1GM/250ML 250 ML IV SCH ×2 (07:00→17:02)
[2020-11-28 07:03] LABS: Albumin 1.4 g/dL (3.4-5.0); BUN/Creatinine Ratio 40.5; Bilirubin, Total 1.1 mg/dL (0.2-1.0); CRP High Sensitivity 4.24 mg/dL (< 0.3); Calcium 7.3 mg/dL (8.5-10.1); Magnesium 1.9 mg/dL (1.6-2.6); Phosphorus 1.9 mg/dL (2.5-4.90)
[2020-11-28] MEDS: NOREPINEPHRINE 8 MG/250ML KIT 250 ML IV SCH ×2 (08:10→19:15)
[2020-11-28] MEDS ORDERED: [UNRECOGNIZED DRUG - OTHER] IV SCH ×18 (09:45→20:00)
[2020-11-28] MEDS ORDERED: POTASSIUM CHLORIDE IV SCH ×18 (09:45→20:00)
[2020-11-28] MEDS ORDERED: POTASSIUM PHOSPHATE IV SCH ×18 (09:45→20:00)
[2020-11-28] MEDS: DexAMETHasone SOD PHOS 10MG/1ML VIAL INJ IV SCH (09:55)
[2020-11-28] MEDS: LEVOTHYROXINE SODIUM 100 MCG/5 ML INJ IV SCH (09:55)
[2020-11-28] MEDS: FAMOTIDINE (10MG/ML) 2ML VL IV SCH ×2 (09:55→22:03)
[2020-11-28] MEDS ORDERED: POTASSIUM PHOSPHATE 44 MEQ in D5W 5% 250 ML IV ONE (10:30)
[2020-11-28] MEDS: PROPOFOL 100 ML IV SCH (14:55)
[2020-11-29] VITALS (95 sets, daily range): BP systolic 75–181; BP diastolic 40–90
[2020-11-29] MEDS: VANCOMYCIN 1GM/250ML 250 ML IV SCH ×3 (01:59→20:17)
[2020-11-29 04:47] LABS: Basophils # (auto) 0 10 ^3/uL (0-0.2); Basophils % (auto) 0.4 % (0.0-2.0); Eosinophils # (auto) 0 10 ^3/uL (0-0.8); Hematocrit 40.8 % (41.0-53.0); Hemoglobin 12.6 g/dL (13.5-17.5); Lymphocytes # (auto) 0.3 10 ^3/uL (0.4-5.4); Lymphocytes % (auto) 3.2 % (10.0-50.0); Mean Corpuscular Hemoglobin 24.4 pg (28.0-32.0); Mean Corpuscular Hgb Conc. 30.9 g/dL (32.0-36.0); Monocytes # (auto) 0.4 10 ^3/uL (0-1.3); Monocytes % (auto) 3.9 % (0.0-12.0); Neutrophils # (auto) 8.5 10 ^3/uL (1.6-8.6); Neutrophils % (auto) 92.5 % (37.0-80.0); Platelet Count (auto) 127 10^3/uL (140-450); Red Blood Cells 5.17 10^6/uL (4.5-5.90); White Blood Cell 9.2 10^3/uL (4.4-10.8)
[2020-11-29 05:05] LABS: Calcium 7.7 mg/dL (8.5-10.1); Magnesium 1.9 mg/dL (1.6-2.6); Potassium 3.4 mmol/L (3.5-5.1)
[2020-11-29 05:15] LABS: Albumin 1.4 g/dL (3.4-5.0); Bilirubin, Total 0.8 mg/dL (0.2-1.0); CRP High Sensitivity 4.76 mg/dL (< 0.3); Phosphorus 2.1 mg/dL (2.5-4.90); Total Protein 5.4 g/dL (6.4-8.2)
[2020-11-29] MEDS: PIPERACILLIN-TAZO 4.5GM 100 ML IV SCH ×3 (05:28→21:16)
[2020-11-29] MEDS: InsuLIN REG 1unit/0.01ml Soln (100units/ml) SC SCH ×4 (06:03→17:34)
[2020-11-29] MEDS: ACCU-CHEK COMFORT CURVE STRIP VI SCH ×4 (06:04→17:15)
[2020-11-29] MEDS: DOPamine 1600MCG/ML D5W 250 ML IV SCH ×2 (07:45→14:09)
[2020-11-29] MEDS: MIDAZOLAM DRIP 50 mg/50mL 50 ML IV SCH ×2 (07:45→20:30)
[2020-11-29] MEDS: PROPOFOL 100 ML IV SCH ×2 (09:15→16:30)
[2020-11-29] MEDS: DexAMETHasone SOD PHOS 10MG/1ML VIAL INJ IV SCH (09:42)
[2020-11-29] MEDS: LEVOTHYROXINE SODIUM 100 MCG/5 ML INJ IV SCH (09:43)
[2020-11-29] MEDS: FAMOTIDINE (10MG/ML) 2ML VL IV SCH ×2 (09:43→21:16)
[2020-11-29] MEDS ORDERED: POTASSIUM PHOSP 22MEQ(15MMOLE) in NS 100 ML IV ONE (12:00)
[2020-11-29] MEDS: NOREPINEPHRINE 8 MG/250ML KIT 250 ML IV SCH (17:50)
[2020-11-29] MEDS ORDERED: TPN PER PHARMACY IV NR ×9 (20:00)
[2020-11-30] VITALS (94 sets, daily range): BP systolic 79–161; BP diastolic 46–94
[2020-11-30] MEDS: ACCU-CHEK COMFORT CURVE STRIP VI SCH ×5 (00:29→23:54)
[2020-11-30] MEDS: InsuLIN REG 1unit/0.01ml Soln (100units/ml) SC SCH ×5 (00:29→23:54)
[2020-11-30] MEDS: PROPOFOL 100 ML IV SCH ×2 (02:14→13:15)
[2020-11-30] MEDS: VANCOMYCIN 1GM/250ML 250 ML IV SCH ×3 (03:28→20:00)
[2020-11-30 04:42] LABS: Basophils # (auto) 0 10 ^3/uL (0-0.2); Basophils % (auto) 0.2 % (0.0-2.0); Eosinophils # (auto) 0 10 ^3/uL (0-0.8); Hemoglobin 12.3 g/dL (13.5-17.5); Lymphocytes # (auto) 0.5 10 ^3/uL (0.4-5.4); Monocytes # (auto) 0.4 10 ^3/uL (0-1.3); Neutrophils # (auto) 13.6 10 ^3/uL (1.6-8.6)
[2020-11-30 04:46] LABS: Hematocrit 39.3 % (41.0-53.0); Lymphocytes % (auto) 3.6 % (10.0-50.0); Mean Corpuscular Hemoglobin 24.5 pg (28.0-32.0); Mean Corpuscular Hgb Conc. 31.4 g/dL (32.0-36.0); Mean Corpuscular Volume 78.1 fL (80.0-100.0); Monocytes % (auto) 2.5 % (0.0-12.0); Neutrophils % (auto) 93.7 % (37.0-80.0); Platelet Count (auto) 119 10^3/uL (140-450); Red Blood Cells 5.02 10^6/uL (4.5-5.90); Red Cell Distribution Width 19.4 % (11.8-14.3); White Blood Cell 14.5 10^3/uL (4.4-10.8)
[2020-11-30 05:17] LABS: Albumin 1.3 g/dL (3.4-5.0); Bilirubin, Total 0.6 mg/dL (0.2-1.0); CRP High Sensitivity 4.71 mg/dL (< 0.3); Calcium 7.9 mg/dL (8.5-10.1); Total Protein 5.1 g/dL (6.4-8.2)
[2020-11-30] MEDS: PIPERACILLIN-TAZO 4.5GM 100 ML IV SCH ×3 (05:47→22:01)
[2020-11-30] MEDS: ACETAMINOPHEN 650 mg PER 20.3 mL UD GT PRN ×2 (07:06→23:53)
[2020-11-30] MEDS: DOPamine 1600MCG/ML D5W 250 ML IV SCH (08:32)
[2020-11-30] MEDS: DexAMETHasone SOD PHOS 10MG/1ML VIAL INJ IV SCH (09:32)
[2020-11-30] MEDS: LEVOTHYROXINE SODIUM 100 MCG/5 ML INJ IV SCH (09:33)
[2020-11-30] MEDS: FAMOTIDINE (10MG/ML) 2ML VL IV SCH ×2 (09:33→22:00)
[2020-11-30] MEDS ORDERED: SODIUM PHOSP 40 MEQ in D5W 5% 250 ML IV ONE (12:00)
[2020-11-30] MEDS: NOREPINEPHRINE 8 MG/250ML KIT 250 ML IV SCH (18:24)
[2020-11-30] MEDS ORDERED: TPN PER PHARMACY IV NR ×8 (20:00)
[2020-12-01] VITALS (96 sets, daily range): BP systolic 81–153; BP diastolic 53–77
[2020-12-01] MEDS: PROPOFOL 100 ML IV SCH ×4 (00:42→18:26)
[2020-12-01] MEDS: VANCOMYCIN 1GM/250ML 250 ML IV SCH ×4 (04:09→21:00)
[2020-12-01 05:24] LABS: Basophils # (auto) 0.1 10 ^3/uL (0-0.2); Eosinophils # (auto) 0 10 ^3/uL (0-0.8); Hemoglobin 11.9 g/dL (13.5-17.5); Lymphocytes # (auto) 0.6 10 ^3/uL (0.4-5.4); Monocytes # (auto) 0.5 10 ^3/uL (0-1.3)
[2020-12-01 05:26] LABS: Basophils % (auto) 0.4 % (0.0-2.0); Hematocrit 38.2 % (41.0-53.0); Lymphocytes % (auto) 4.2 % (10.0-50.0); Mean Corpuscular Hemoglobin 24.2 pg (28.0-32.0); Mean Corpuscular Hgb Conc. 31.2 g/dL (32.0-36.0); Mean Corpuscular Volume 77.7 fL (80.0-100.0); Monocytes % (auto) 3.6 % (0.0-12.0); Neutrophils # (auto) 12.6 10 ^3/uL (1.6-8.6); Neutrophils % (auto) 91.8 % (37.0-80.0); Nucleated Red Blood Cells % 0.1 %; Platelet Count (auto) 123 10^3/uL (140-450); Red Blood Cells 4.92 10^6/uL (4.5-5.90); Red Cell Distribution Width 19.5 % (11.8-14.3); White Blood Cell 13.7 10^3/uL (4.4-10.8)
[2020-12-01 05:52] LABS: Albumin 1.2 g/dL (3.4-5.0); Calcium 7.7 mg/dL (8.5-10.1); Magnesium 2.2 mg/dL (1.6-2.6); Potassium 4.4 mmol/L (3.5-5.1)
[2020-12-01 05:55] LABS: Bilirubin, Total 0.7 mg/dL (0.2-1.0); Phosphorus 3.1 mg/dL (2.5-4.90)
[2020-12-01] MEDS: PIPERACILLIN-TAZO 4.5GM 100 ML IV SCH ×3 (06:03→22:15)
[2020-12-01] MEDS: InsuLIN REG 1unit/0.01ml Soln (100units/ml) SC SCH ×3 (06:04→18:45)
[2020-12-01] MEDS: ACCU-CHEK COMFORT CURVE STRIP VI SCH ×3 (06:04→18:45)
[2020-12-01] MEDS: DOPamine 1600MCG/ML D5W 250 ML IV SCH (09:37)
[2020-12-01] MEDS: LEVOTHYROXINE SODIUM 100 MCG/5 ML INJ IV SCH (09:43)
[2020-12-01] MEDS: DexAMETHasone SOD PHOS 10MG/1ML VIAL INJ IV SCH (09:43)
[2020-12-01] MEDS: FAMOTIDINE (10MG/ML) 2ML VL IV SCH ×2 (09:45→22:15)
[2020-12-01] MEDS: NOREPINEPHRINE 8 MG/250ML KIT 250 ML IV SCH (18:00)
[2020-12-01] MEDS ORDERED: TPN PER PHARMACY IV NR ×7 (20:00)
[2020-12-02] VITALS (73 sets, daily range): BP systolic 81–147; BP diastolic 45–79
[2020-12-02] MEDS: PROPOFOL 100 ML IV SCH ×4 (01:38→15:36)
[2020-12-02] MEDS: VANCOMYCIN 1GM/250ML 250 ML IV SCH ×3 (04:49→21:26)
[2020-12-02 04:53] LABS: Basophils # (auto) 0 10 ^3/uL (0-0.2); Basophils % (auto) 0.1 % (0.0-2.0); Eosinophils # (auto) 0 10 ^3/uL (0-0.8); Hematocrit 36.3 % (41.0-53.0); Hemoglobin 11.3 g/dL (13.5-17.5); Lymphocytes # (auto) 0.4 10 ^3/uL (0.4-5.4); Lymphocytes % (auto) 3.4 % (10.0-50.0); Mean Corpuscular Hemoglobin 24.5 pg (28.0-32.0); Mean Corpuscular Hgb Conc. 31.2 g/dL (32.0-36.0); Mean Corpuscular Volume 78.5 fL (80.0-100.0); Monocytes # (auto) 0.5 10 ^3/uL (0-1.3); Monocytes % (auto) 3.7 % (0.0-12.0); Neutrophils # (auto) 12.1 10 ^3/uL (1.6-8.6); Neutrophils % (auto) 92.8 % (37.0-80.0); Nucleated Red Blood Cells % 0.1 %; Platelet Count (auto) 113 10^3/uL (140-450); Red Blood Cells 4.63 10^6/uL (4.5-5.90); Red Cell Distribution Width 19.3 % (11.8-14.3)
[2020-12-02 05:47] LABS: Albumin 1.2 g/dL (3.4-5.0); Calcium 7.5 mg/dL (8.5-10.1); Magnesium 2.3 mg/dL (1.6-2.6); Potassium 4.2 mmol/L (3.5-5.1)
[2020-12-02 05:50] LABS: BUN/Creatinine Ratio 77.8; Bilirubin, Total 0.5 mg/dL (0.2-1.0); Phosphorus 2.4 mg/dL (2.5-4.90); Total Protein 4.8 g/dL (6.4-8.2)
[2020-12-02] MEDS: ACCU-CHEK COMFORT CURVE STRIP VI SCH ×4 (06:16→17:22)
[2020-12-02] MEDS: PIPERACILLIN-TAZO 4.5GM 100 ML IV SCH ×3 (06:16→21:45)
[2020-12-02] MEDS: InsuLIN REG 1unit/0.01ml Soln (100units/ml) SC SCH ×4 (06:17→17:22)
[2020-12-02] MEDS: FAMOTIDINE (10MG/ML) 2ML VL IV SCH ×2 (09:20→21:45)
[2020-12-02] MEDS: DexAMETHasone SOD PHOS 10MG/1ML VIAL INJ IV SCH (09:20)
[2020-12-02] MEDS: LEVOTHYROXINE SODIUM 100 MCG/5 ML INJ IV SCH (09:20)
[2020-12-02] MEDS ORDERED: TPN PER PHARMACY IV NR ×7 (20:00)
[2020-12-03] VITALS (99 sets, daily range): BP systolic 85–132; BP diastolic 47–74
[2020-12-03] MEDS: VANCOMYCIN 1GM/250ML 250 ML IV SCH ×3 (05:01→20:30)
[2020-12-03 05:34] LABS: Basophils # (auto) 0 10 ^3/uL (0-0.2); Basophils % (auto) 0.2 % (0.0-2.0); Eosinophils # (auto) 0 10 ^3/uL (0-0.8); Monocytes # (auto) 0.6 10 ^3/uL (0-1.3)
[2020-12-03 05:37] LABS: Hematocrit 36.1 % (41.0-53.0); Hemoglobin 11.2 g/dL (13.5-17.5); Lymphocytes # (auto) 0.6 10 ^3/uL (0.4-5.4); Lymphocytes % (auto) 4.7 % (10.0-50.0); Mean Corpuscular Hemoglobin 24.4 pg (28.0-32.0); Mean Corpuscular Hgb Conc. 31.1 g/dL (32.0-36.0); Mean Corpuscular Volume 78.5 fL (80.0-100.0); Monocytes % (auto) 4.9 % (0.0-12.0); Neutrophils % (auto) 90.2 % (37.0-80.0); Platelet Count (auto) 117 10^3/uL (140-450); Red Cell Distribution Width 19.4 % (11.8-14.3); White Blood Cell 12.2 10^3/uL (4.4-10.8)
[2020-12-03 05:53] LABS: Albumin 1.2 g/dL (3.4-5.0); Calcium 7.5 mg/dL (8.5-10.1); Potassium 3.7 mmol/L (3.5-5.1)
[2020-12-03 05:59] LABS: BUN/Creatinine Ratio 109.1; Bilirubin, Total 0.5 mg/dL (0.2-1.0); Magnesium 2.2 mg/dL (1.6-2.6); Phosphorus 2.5 mg/dL (2.5-4.90); Total Protein 4.8 g/dL (6.4-8.2)
[2020-12-03] MEDS: ACCU-CHEK COMFORT CURVE STRIP VI SCH ×4 (06:00→18:15)
[2020-12-03] MEDS: PIPERACILLIN-TAZO 4.5GM 100 ML IV SCH ×3 (06:00→22:05)
[2020-12-03] MEDS: InsuLIN REG 1unit/0.01ml Soln (100units/ml) SC SCH ×4 (06:00→18:15)
[2020-12-03] MEDS: PROPOFOL 100 ML IV SCH ×5 (07:47→19:06)
[2020-12-03] MEDS: LEVOTHYROXINE SODIUM 100 MCG/5 ML INJ IV SCH (10:15)
[2020-12-03] MEDS: FAMOTIDINE (10MG/ML) 2ML VL IV SCH ×2 (10:15→20:30)
[2020-12-03] MEDS: DexAMETHasone SOD PHOS 10MG/1ML VIAL INJ IV SCH (10:15)
[2020-12-03] MEDS: NOREPINEPHRINE 8 MG/250ML KIT 250 ML IV SCH ×2 (17:24→19:15)
[2020-12-03] MEDS ORDERED: TPN PER PHARMACY IV NR ×7 (20:00)
[2020-12-04] VITALS (96 sets, daily range): BP systolic 82–131; BP diastolic 48–71
[2020-12-04] MEDS: InsuLIN REG 1unit/0.01ml Soln (100units/ml) SC SCH ×5 (00:29→21:37)
[2020-12-04] MEDS: ACCU-CHEK COMFORT CURVE STRIP VI SCH ×5 (00:30→21:37)
[2020-12-04] MEDS: VANCOMYCIN 1GM/250ML 250 ML IV SCH ×3 (03:56→21:00)
[2020-12-04] MEDS: PROPOFOL 100 ML IV SCH ×3 (04:18→21:38)
[2020-12-04 04:31] LABS: Eosinophils # (auto) 0 10 ^3/uL (0-0.8); Lymphocytes # (auto) 0.5 10 ^3/uL (0.4-5.4); Monocytes # (auto) 0.6 10 ^3/uL (0-1.3)
[2020-12-04 04:33] LABS: Basophils # (auto) 0 10 ^3/uL (0-0.2); Basophils % (auto) 0.3 % (0.0-2.0); Eosinophils % (auto) 0.2 % (0.0-7.0); Hematocrit 34.9 % (41.0-53.0); Hemoglobin 11.1 g/dL (13.5-17.5); Lymphocytes % (auto) 4.7 % (10.0-50.0); Mean Corpuscular Hemoglobin 24.6 pg (28.0-32.0); Mean Corpuscular Hgb Conc. 31.7 g/dL (32.0-36.0); Mean Corpuscular Volume 77.6 fL (80.0-100.0); Monocytes % (auto) 5.6 % (0.0-12.0); Neutrophils # (auto) 9.8 10 ^3/uL (1.6-8.6); Neutrophils % (auto) 89.2 % (37.0-80.0); Platelet Count (auto) 148 10^3/uL (140-450); Red Cell Distribution Width 19.2 % (11.8-14.3)
[2020-12-04 04:49] LABS: Albumin 1.2 g/dL (3.4-5.0); Calcium 7.5 mg/dL (8.5-10.1); Magnesium 2.2 mg/dL (1.6-2.6); Potassium 4.5 mmol/L (3.5-5.1)
[2020-12-04 04:57] LABS: BUN/Creatinine Ratio 88.9; Bilirubin, Total 0.5 mg/dL (0.2-1.0); Phosphorus 2.5 mg/dL (2.5-4.90); Pre Albumin 13.7 mg/dL (20.0-40.0); Total Protein 4.8 g/dL (6.4-8.2)
[2020-12-04] MEDS: PIPERACILLIN-TAZO 4.5GM 100 ML IV SCH ×3 (05:31→23:20)
[2020-12-04] MEDS: DexAMETHasone SOD PHOS 10MG/1ML VIAL INJ IV SCH (09:21)
[2020-12-04] MEDS: LEVOTHYROXINE SODIUM 100 MCG/5 ML INJ IV SCH (09:22)
[2020-12-04] MEDS: FAMOTIDINE (10MG/ML) 2ML VL IV SCH ×2 (09:49→21:37)
[2020-12-04] MEDS ORDERED: TPN PER PHARMACY IV NR ×7 (20:00)
[2020-12-04] MEDS: NOREPINEPHRINE 8 MG/250ML KIT 250 ML IV SCH (21:01)
[2020-12-04] MEDS ORDERED: MIDAZOLAM HCL 1MG/1ML-2 ML VIAL IV PRN (22:15)
[2020-12-04 22:34] LABS: INR 1.09 (0.9-1.15)
[2020-12-05] VITALS (93 sets, daily range): BP systolic 79–136; BP diastolic 47–71
[2020-12-05] MEDS: VANCOMYCIN 1GM/250ML 250 ML IV SCH ×3 (05:00→21:00)
[2020-12-05] MEDS: ACCU-CHEK COMFORT CURVE STRIP VI SCH ×4 (06:00→23:22)
[2020-12-05] MEDS: InsuLIN REG 1unit/0.01ml Soln (100units/ml) SC SCH ×4 (06:00→23:22)
[2020-12-05] MEDS: PIPERACILLIN-TAZO 4.5GM 100 ML IV SCH ×3 (06:00→22:26)
[2020-12-05 06:10] LABS: Hematocrit 32.7 % (41.0-53.0); Hemoglobin 10.3 g/dL (13.5-17.5); Mean Corpuscular Hemoglobin 24.5 pg (28.0-32.0); Mean Corpuscular Hgb Conc. 31.4 g/dL (32.0-36.0); Mean Corpuscular Volume 78.1 fL (80.0-100.0); Platelet Count (auto) 152 10^3/uL (140-450); Red Blood Cells 4.19 10^6/uL (4.5-5.90); Red Cell Distribution Width 19.1 % (11.8-14.3); White Blood Cell 7.2 10^3/uL (4.4-10.8)
[2020-12-05 06:34] LABS: Albumin 1.2 g/dL (3.4-5.0); Calcium 7.5 mg/dL (8.5-10.1); Magnesium 2.2 mg/dL (1.6-2.6)
[2020-12-05 06:40] LABS: BUN/Creatinine Ratio 95.5; Bilirubin, Total 0.7 mg/dL (0.2-1.0); Phosphorus 2.7 mg/dL (2.5-4.90); Total Protein 4.7 g/dL (6.4-8.2)
[2020-12-05 06:54] LABS: Basophils % (manual) 0 (0.0-2.0); Blast Cells 0; Eosinophils % (manual) 0 (0-7); Metamyelocytes % 0; Myelocytes % 0; Promyelocytes % 0; Reactive Lymphocytes 0
[2020-12-05 08:44] LABS: Band Neutrophils % (manual) 3; Lymphocytes % (manual) 5 (10.0-50.0); Monocytes % (manual) 5 (0-12)
[2020-12-05] MEDS: DexAMETHasone SOD PHOS 10MG/1ML VIAL INJ IV SCH (09:16)
[2020-12-05] MEDS: LEVOTHYROXINE SODIUM 100 MCG/5 ML INJ IV SCH (09:18)
[2020-12-05] MEDS: FAMOTIDINE (10MG/ML) 2ML VL IV SCH ×2 (10:08→22:25)
[2020-12-05] MEDS: NOREPINEPHRINE 8 MG/250ML KIT 250 ML IV SCH (20:57)
[2020-12-05] MEDS: TPN PER PHARMACY IV NR ×9 (20:58)
[2020-12-06] VITALS (99 sets, daily range): BP systolic 70–191; BP diastolic 41–83
[2020-12-06] MEDS: PROPOFOL 100 ML IV SCH ×2 (02:22→20:57)
[2020-12-06 05:00] LABS: Eosinophils # (auto) 0 10 ^3/uL (0-0.8); Eosinophils % (auto) 0.6 % (0.0-7.0); Lymphocytes # (auto) 0.5 10 ^3/uL (0.4-5.4); Monocytes # (auto) 0.3 10 ^3/uL (0-1.3); Neutrophils # (auto) 6.1 10 ^3/uL (1.6-8.6)
[2020-12-06] MEDS: VANCOMYCIN 1GM/250ML 250 ML IV SCH ×3 (05:00→21:04)
[2020-12-06 05:06] LABS: Basophils # (auto) 0.1 10 ^3/uL (0-0.2); Basophils % (auto) 0.8 % (0.0-2.0); Hematocrit 33.8 % (41.0-53.0); Hemoglobin 10.7 g/dL (13.5-17.5); Lymphocytes % (auto) 7.2 % (10.0-50.0); Mean Corpuscular Hemoglobin 24.6 pg (28.0-32.0); Mean Corpuscular Hgb Conc. 31.6 g/dL (32.0-36.0); Mean Corpuscular Volume 77.8 fL (80.0-100.0); Monocytes % (auto) 4.3 % (0.0-12.0); Neutrophils % (auto) 87.1 % (37.0-80.0); Nucleated Red Blood Cells % 0.1 %; Platelet Count (auto) 159 10^3/uL (140-450); Red Blood Cells 4.34 10^6/uL (4.5-5.90); Red Cell Distribution Width 19.4 % (11.8-14.3)
[2020-12-06 05:19] LABS: Potassium 3.5 mmol/L (3.5-5.1)
[2020-12-06 05:30] LABS: Albumin 1.3 g/dL (3.4-5.0); BUN/Creatinine Ratio 131.3; Bilirubin, Total 0.7 mg/dL (0.2-1.0); Calcium 8.2 mg/dL (8.5-10.1); Magnesium 2.3 mg/dL (1.6-2.6); Phosphorus 1.9 mg/dL (2.5-4.90); Total Protein 4.8 g/dL (6.4-8.2)
[2020-12-06] MEDS: InsuLIN REG 1unit/0.01ml Soln (100units/ml) SC SCH ×3 (05:55→17:19)
[2020-12-06] MEDS: ACCU-CHEK COMFORT CURVE STRIP VI SCH ×3 (05:55→17:28)
[2020-12-06] MEDS: PIPERACILLIN-TAZO 4.5GM 100 ML IV SCH ×3 (06:26→21:50)
[2020-12-06 09:34] LABS: Albumin 1.4 g/dL (3.4-5.0); Calcium 8.1 mg/dL (8.5-10.1); Potassium 3.5 mmol/L (3.5-5.1)
[2020-12-06 09:43] LABS: Bilirubin, Total 0.8 mg/dL (0.2-1.0); Total Protein 5.3 g/dL (6.4-8.2)
[2020-12-06] MEDS: LEVOTHYROXINE SODIUM 100 MCG/5 ML INJ IV SCH (10:03)
[2020-12-06] MEDS: DexAMETHasone SOD PHOS 10MG/1ML VIAL INJ IV SCH (10:04)
[2020-12-06] MEDS: FAMOTIDINE (10MG/ML) 2ML VL IV SCH ×2 (10:04→21:50)
[2020-12-06] MEDS ORDERED: POTASSIUM PHOSP 22MEQ(15MMOLE) in NS 100 ML IV ONE (12:00)
[2020-12-06] MEDS: TPN PER PHARMACY IV NR ×9 (19:53)
[2020-12-06] MEDS ORDERED: TPN PER PHARMACY IV NR ×8 (20:00)
[2020-12-07] VITALS (93 sets, daily range): BP systolic 72–141; BP diastolic 44–87
[2020-12-07] MEDS: InsuLIN REG 1unit/0.01ml Soln (100units/ml) SC SCH ×4 (00:54→18:20)
[2020-12-07] MEDS: ACCU-CHEK COMFORT CURVE STRIP VI SCH ×4 (00:54→18:15)
[2020-12-07 04:59] LABS: Basophils # (auto) 0 10 ^3/uL (0-0.2); Eosinophils # (auto) 0 10 ^3/uL (0-0.8); Eosinophils % (auto) 0.1 % (0.0-7.0); Hemoglobin 10.5 g/dL (13.5-17.5); Lymphocytes # (auto) 0.5 10 ^3/uL (0.4-5.4); Mean Corpuscular Hgb Conc. 31.8 g/dL (32.0-36.0); Monocytes # (auto) 0.3 10 ^3/uL (0-1.3)
[2020-12-07] MEDS: VANCOMYCIN 1GM/250ML 250 ML IV SCH ×3 (05:00→21:00)
[2020-12-07 05:03] LABS: Basophils % (auto) 0.3 % (0.0-2.0); Lymphocytes % (auto) 6.2 % (10.0-50.0); Mean Corpuscular Hemoglobin 24.6 pg (28.0-32.0); Mean Corpuscular Volume 77.4 fL (80.0-100.0); Monocytes % (auto) 4.1 % (0.0-12.0); Neutrophils # (auto) 6.5 10 ^3/uL (1.6-8.6); Neutrophils % (auto) 89.3 % (37.0-80.0); Nucleated Red Blood Cells % 0.1 %; Platelet Count (auto) 234 10^3/uL (140-450); Red Blood Cells 4.26 10^6/uL (4.5-5.90); White Blood Cell 7.3 10^3/uL (4.4-10.8)
[2020-12-07 05:23] LABS: Chloride 104 mmol/L (98-107); Potassium 3.4 mmol/L (3.5-5.1); Sodium 144 mmol/L (136-145)
[2020-12-07 05:33] LABS: Alanine Aminotransferase 30 U/L (16-61); Albumin 1.2 g/dL (3.4-5.0); Alkaline Phosphatase 181 U/L (45-117); Anion Gap 0 (5-15); Aspartate Aminotransferase 29 U/L (15-37); BUN/Creatinine Ratio 126.7; Bilirubin, Total 0.4 mg/dL (0.2-1.0); Blood Urea Nitrogen 19 mg/dL (7-18); Calcium 7.4 mg/dL (8.5-10.1); Carbon Dioxide 40 mmol/L (21-32); GFR African American 872 mL/min; GFR Non-African American 721 mL/min; Glucose 179 mg/dL (74-106); Phosphorus 2.7 mg/dL (2.5-4.90); Total Protein 4.8 g/dL (6.4-8.2)
[2020-12-07] MEDS: PIPERACILLIN-TAZO 4.5GM 100 ML IV SCH ×3 (06:13→22:23)
[2020-12-07] MEDS: LEVOTHYROXINE SODIUM 100 MCG/5 ML INJ IV SCH (10:00)
[2020-12-07] MEDS: DexAMETHasone SOD PHOS 10MG/1ML VIAL INJ IV SCH (10:00)
[2020-12-07] MEDS: FAMOTIDINE (10MG/ML) 2ML VL IV SCH ×2 (10:17→22:23)
[2020-12-07] MEDS ORDERED: POTASSIUM PHOSP 22MEQ(15MMOLE) in NS 100 ML IV ONE (12:00)
[2020-12-07] MEDS: PROPOFOL 100 ML IV SCH (13:10)
[2020-12-07] MEDS: NOREPINEPHRINE 8 MG/250ML KIT 250 ML IV SCH (19:15)
[2020-12-07] MEDS ORDERED: TPN PER PHARMACY IV NR ×9 (20:00)
[2020-12-08] VITALS (82 sets, daily range): BP systolic 89–172; BP diastolic 50–75
[2020-12-08] MEDS: ACCU-CHEK COMFORT CURVE STRIP VI SCH ×3 (00:07→12:19)
[2020-12-08] MEDS: PROPOFOL 100 ML IV SCH ×3 (03:04→22:30)
[2020-12-08] MEDS: NOREPINEPHRINE 8 MG/250ML KIT 250 ML IV SCH ×2 (03:10→19:15)
[2020-12-08] MEDS: VANCOMYCIN 1GM/250ML 250 ML IV SCH ×2 (05:00→15:00)
[2020-12-08 05:21] LABS: Basophils # (auto) 0 10 ^3/uL (0-0.2); Basophils % (auto) 0.7 % (0.0-2.0); Eosinophils # (auto) 0.2 10 ^3/uL (0-0.8); Eosinophils % (auto) 3.4 % (0.0-7.0); Hematocrit 35.8 % (41.0-53.0); Hemoglobin 11.1 g/dL (13.5-17.5); Lymphocytes # (auto) 0.4 10 ^3/uL (0.4-5.4); Lymphocytes % (auto) 5.9 % (10.0-50.0); Mean Corpuscular Hgb Conc. 31.1 g/dL (32.0-36.0); Mean Corpuscular Volume 77.3 fL (80.0-100.0); Monocytes # (auto) 0.2 10 ^3/uL (0-1.3); Monocytes % (auto) 3.5 % (0.0-12.0); Neutrophils # (auto) 5.2 10 ^3/uL (1.6-8.6); Neutrophils % (auto) 86.5 % (37.0-80.0); Platelet Count (auto) 243 10^3/uL (140-450); Red Blood Cells 4.63 10^6/uL (4.5-5.90); Red Cell Distribution Width 19.6 % (11.8-14.3); White Blood Cell 6.1 10^3/uL (4.4-10.8)
[2020-12-08] MEDS: DEXTROSE (50%) 50ML SYRG IV SCH (05:38)
[2020-12-08 05:47] LABS: Chloride 104 mmol/L (98-107); Sodium 145 mmol/L (136-145)
[2020-12-08 05:54] LABS: Alanine Aminotransferase 56 U/L (16-61); Albumin 1.2 g/dL (3.4-5.0); Alkaline Phosphatase 223 U/L (45-117); Anion Gap 3 (5-15); Aspartate Aminotransferase 64 U/L (15-37); BUN/Creatinine Ratio 126.7; Bilirubin, Total 0.7 mg/dL (0.2-1.0); Blood Urea Nitrogen 19 mg/dL (7-18); Calcium 7.3 mg/dL (8.5-10.1); Carbon Dioxide 38 mmol/L (21-32); GFR African American 872 mL/min; GFR Non-African American 721 mL/min; Glucose 60 mg/dL (74-106); Phosphorus 2.8 mg/dL (2.5-4.90); Total Protein 4.9 g/dL (6.4-8.2)
[2020-12-08] MEDS: InsuLIN REG 1unit/0.01ml Soln (100units/ml) SC SCH ×3 (06:00→12:00)
[2020-12-08] MEDS: PIPERACILLIN-TAZO 4.5GM 100 ML IV SCH ×3 (06:06→23:12)
[2020-12-08] MEDS ORDERED: LIDOCAINE W/ EPINEPHRINE 1 % INJ 30ML ONE (07:15)
[2020-12-08] MEDS: POTASSIUM CHL 20MEQ/100ML 100 ML IV SCH ×2 (09:45→11:45)
[2020-12-08] MEDS: DexAMETHasone SOD PHOS 10MG/1ML VIAL INJ IV SCH (10:08)
[2020-12-08] MEDS: FAMOTIDINE (10MG/ML) 2ML VL IV SCH ×2 (10:08→23:11)
[2020-12-08] MEDS: LEVOTHYROXINE SODIUM 100 MCG/5 ML INJ IV SCH (10:08)
[2020-12-08] MEDS ORDERED: AMINO ACID INFUSION IN D10W 1,000 ML IV NR (12:00)
[2020-12-08 12:13] LABS: INR 1.15 (0.9-1.15); Partial Thromboplastin Time 33.2 sec (23.0-31.2)
[2020-12-08] MEDS ORDERED: POTASSIUM PHOSP 22MEQ(15MMOLE) in NS 100 ML IV ONE (14:00)
[2020-12-08] MEDS ORDERED: TPN PER PHARMACY IV NR ×6 (20:00)
[2020-12-09] VITALS (81 sets, daily range): BP systolic 93–152; BP diastolic 51–69
[2020-12-09] MEDS: VANCOMYCIN 1GM/250ML 250 ML IV SCH ×3 (01:35→21:00)
[2020-12-09 05:03] LABS: Hematocrit 33.9 % (41.0-53.0); Hemoglobin 10.5 g/dL (13.5-17.5); Mean Corpuscular Hemoglobin 24.3 pg (28.0-32.0); Mean Corpuscular Volume 78.4 fL (80.0-100.0); Platelet Count (auto) 226 10^3/uL (140-450); Red Blood Cells 4.32 10^6/uL (4.5-5.90); Red Cell Distribution Width 19.9 % (11.8-14.3); White Blood Cell 5.1 10^3/uL (4.4-10.8)
[2020-12-09 05:07] LABS: Basophils % (manual) 0 (0.0-2.0); Blast Cells 0; Eosinophils % (manual) 0 (0-7); Metamyelocytes % 0; Myelocytes % 0; Promyelocytes % 0; Reactive Lymphocytes 0
[2020-12-09] MEDS: PIPERACILLIN-TAZO 4.5GM 100 ML IV SCH ×3 (05:22→22:00)
[2020-12-09 05:24] LABS: Potassium 4.6 mmol/L (3.5-5.1)
[2020-12-09] MEDS: InsuLIN REG 1unit/0.01ml Soln (100units/ml) SC SCH ×4 (05:25→17:10)
[2020-12-09] MEDS: ACCU-CHEK COMFORT CURVE STRIP VI SCH ×4 (05:25→17:10)
[2020-12-09 05:36] LABS: Albumin 1.1 g/dL (3.4-5.0); Bilirubin, Total 0.5 mg/dL (0.2-1.0); Calcium 7.4 mg/dL (8.5-10.1); Magnesium 2.2 mg/dL (1.6-2.6); Phosphorus 3.3 mg/dL (2.5-4.90)
[2020-12-09 06:47] LABS: Band Neutrophils % (manual) 38; Lymphocytes % (manual) 11 (10.0-50.0); Monocytes % (manual) 2 (0-12)
[2020-12-09] MEDS: DexAMETHasone SOD PHOS 10MG/1ML VIAL INJ IV SCH (10:00)
[2020-12-09] MEDS: LEVOTHYROXINE SODIUM 100 MCG/5 ML INJ IV SCH (10:00)
[2020-12-09] MEDS: FAMOTIDINE (10MG/ML) 2ML VL IV SCH ×2 (10:00→21:08)
[2020-12-09] MEDS: NOREPINEPHRINE 8 MG/250ML KIT 250 ML IV SCH (19:15)
[2020-12-09] MEDS ORDERED: TPN PER PHARMACY IV NR ×8 (20:00)
[2020-12-10] VITALS (95 sets, daily range): BP systolic 86–148; BP diastolic 42–65
[2020-12-10] MEDS: InsuLIN REG 1unit/0.01ml Soln (100units/ml) SC SCH ×5 (05:19→18:29)
[2020-12-10] MEDS: ACCU-CHEK COMFORT CURVE STRIP VI SCH ×5 (05:19→18:28)
[2020-12-10] MEDS: PIPERACILLIN-TAZO 4.5GM 100 ML IV SCH ×3 (05:41→22:46)
[2020-12-10 05:52] LABS: Basophils # (auto) 0 10 ^3/uL (0-0.2); Basophils % (auto) 0.7 % (0.0-2.0); Eosinophils # (auto) 0 10 ^3/uL (0-0.8); Eosinophils % (auto) 0.2 % (0.0-7.0); Hematocrit 27.4 % (41.0-53.0); Hemoglobin 8.5 g/dL (13.5-17.5); Lymphocytes # (auto) 0.5 10 ^3/uL (0.4-5.4); Lymphocytes % (auto) 12.3 % (10.0-50.0); Mean Corpuscular Hemoglobin 24.4 pg (28.0-32.0); Mean Corpuscular Hgb Conc. 31.1 g/dL (32.0-36.0); Mean Corpuscular Volume 78.3 fL (80.0-100.0); Monocytes # (auto) 0.2 10 ^3/uL (0-1.3); Monocytes % (auto) 4.4 % (0.0-12.0); Neutrophils # (auto) 3.3 10 ^3/uL (1.6-8.6); Neutrophils % (auto) 82.4 % (37.0-80.0); Nucleated Red Blood Cells % 0.1 %; Platelet Count (auto) 200 10^3/uL (140-450); Red Cell Distribution Width 19.7 % (11.8-14.3)
[2020-12-10 06:07] LABS: Chloride 106 mmol/L (98-107); Potassium 4.1 mmol/L (3.5-5.1); Sodium 144 mmol/L (136-145)
[2020-12-10 06:14] LABS: Alanine Aminotransferase 25 U/L (16-61); Alkaline Phosphatase 135 U/L (45-117); Anion Gap 0 (5-15); Aspartate Aminotransferase 19 U/L (15-37); BUN/Creatinine Ratio 153.3; Bilirubin, Total 0.4 mg/dL (0.2-1.0); Blood Urea Nitrogen 23 mg/dL (7-18); Calcium 7.3 mg/dL (8.5-10.1); Carbon Dioxide 38 mmol/L (21-32); GFR African American 872 mL/min; GFR Non-African American 721 mL/min; Glucose 241 mg/dL (74-106); Magnesium 2.1 mg/dL (1.6-2.6); Phosphorus 2.7 mg/dL (2.5-4.90); Total Protein 3.9 g/dL (6.4-8.2)
[2020-12-10 06:23] LABS: Albumin 0.9 g/dL (3.4-5.0)
[2020-12-10] MEDS: VANCOMYCIN 1GM/250ML 250 ML IV SCH ×2 (06:47→17:00)
[2020-12-10] MEDS: FAMOTIDINE (10MG/ML) 2ML VL IV SCH ×2 (10:00→22:45)
[2020-12-10] MEDS: DexAMETHasone SOD PHOS 10MG/1ML VIAL INJ IV SCH (10:00)
[2020-12-10] MEDS: LEVOTHYROXINE SODIUM 100 MCG/5 ML INJ IV SCH (10:00)
[2020-12-10] MEDS: PROPOFOL 100 ML IV SCH (19:00)
[2020-12-10] MEDS: NOREPINEPHRINE 8 MG/250ML KIT 250 ML IV SCH (19:15)
[2020-12-10] MEDS ORDERED: TPN PER PHARMACY IV NR ×6 (20:00)
[2020-12-10] MEDS ORDERED: ALBUMIN 25% 100 ML IV SCH (22:00)
[2020-12-10] MEDS: IPRATROPIUM BROM 0.5 MG/2.5ML INH SOL NEB SCH (23:10)
[2020-12-10] MEDS: ALBUTEROL SULF 2.5 MG/0.5ML(0.5%) NEB SOLN NEB SCH (23:10)
[2020-12-11] VITALS (84 sets, daily range): BP systolic 86–125; BP diastolic 50–70
[2020-12-11] MEDS: ACCU-CHEK COMFORT CURVE STRIP VI SCH ×4 (01:21→17:17)
[2020-12-11] MEDS: VANCOMYCIN 1GM/250ML 250 ML IV SCH ×3 (05:21→21:50)
[2020-12-11] MEDS: InsuLIN REG 1unit/0.01ml Soln (100units/ml) SC SCH ×4 (06:00→17:17)
[2020-12-11] MEDS ORDERED: DEXTROSE 50% SYRINGE 50 ML IV ONE (06:17)
[2020-12-11] MEDS: IPRATROPIUM BROM 0.5 MG/2.5ML INH SOL NEB SCH ×3 (06:45→18:27)
[2020-12-11] MEDS: ALBUTEROL SULF 2.5 MG/0.5ML(0.5%) NEB SOLN NEB SCH ×3 (06:45→18:27)
[2020-12-11] MEDS: PIPERACILLIN-TAZO 4.5GM 100 ML IV SCH ×3 (06:58→23:33)
[2020-12-11] MEDS: DEXTROSE (50%) 50ML SYRG IV SCH ×2 (07:00→11:39)
[2020-12-11] MEDS: DexAMETHasone SOD PHOS 10MG/1ML VIAL INJ IV SCH (08:09)
[2020-12-11] MEDS: LEVOTHYROXINE SODIUM 100 MCG/5 ML INJ IV SCH (08:09)
[2020-12-11] MEDS: FAMOTIDINE (10MG/ML) 2ML VL IV SCH ×2 (08:09→21:51)
[2020-12-11 11:06] LABS: Basophils # (auto) 0.1 10 ^3/uL (0-0.2); Basophils % (auto) 1.2 % (0.0-2.0); Eosinophils # (auto) 0.2 10 ^3/uL (0-0.8); Hematocrit 33.1 % (41.0-53.0); Lymphocytes # (auto) 0.4 10 ^3/uL (0.4-5.4); Monocytes # (auto) 0.2 10 ^3/uL (0-1.3); White Blood Cell 4.3 10^3/uL (4.4-10.8)
[2020-12-11 11:10] LABS: Eosinophils % (auto) 3.7 % (0.0-7.0); Hemoglobin 10.5 g/dL (13.5-17.5); Lymphocytes % (auto) 8.3 % (10.0-50.0); Mean Corpuscular Hemoglobin 24.3 pg (28.0-32.0); Mean Corpuscular Hgb Conc. 31.6 g/dL (32.0-36.0); Monocytes % (auto) 4.3 % (0.0-12.0); Neutrophils # (auto) 3.5 10 ^3/uL (1.6-8.6); Neutrophils % (auto) 82.5 % (37.0-80.0); Platelet Count (auto) 219 10^3/uL (140-450); Red Cell Distribution Width 19.9 % (11.8-14.3)
[2020-12-11 11:33] LABS: Anion Gap 0 (5-15); Carbon Dioxide 38 mmol/L (21-32); Chloride 105 mmol/L (98-107); Glucose 71 mg/dL (74-106); Potassium 3.4 mmol/L (3.5-5.1); Sodium 143 mmol/L (136-145)
[2020-12-11 11:34] LABS: Alanine Aminotransferase 43 U/L (16-61); Albumin 1.4 g/dL (3.4-5.0); Alkaline Phosphatase 253 U/L (45-117); Aspartate Aminotransferase 48 U/L (15-37); BUN/Creatinine Ratio 133.3; Bilirubin, Total 0.7 mg/dL (0.2-1.0); Blood Urea Nitrogen 20 mg/dL (7-18); Calcium 7.2 mg/dL (8.5-10.1); GFR African American 872 mL/min; GFR Non-African American 721 mL/min; Phosphorus 3.1 mg/dL (2.5-4.90); Total Protein 5.1 g/dL (6.4-8.2)
[2020-12-11] MEDS ORDERED: POTASSIUM CHL 20MEQ/100ML 100 ML IV ONE (12:30)
[2020-12-11] MEDS: ALBUMIN 25% 100 ML IV SCH ×2 (12:37→21:49)
[2020-12-11] MEDS ORDERED: TPN PER PHARMACY IV NR ×8 (20:00)
[2020-12-11] MEDS: PROPOFOL 100 ML IV SCH (23:35)
[2020-12-12] VITALS (40 sets, daily range): BP systolic 0–163; BP diastolic 0–74
[2020-12-12] MEDS: ACCU-CHEK COMFORT CURVE STRIP VI SCH ×3 (00:36→11:55)
[2020-12-12] MEDS: InsuLIN REG 1unit/0.01ml Soln (100units/ml) SC SCH ×3 (00:38→11:55)
[2020-12-12 04:49] LABS: Basophils # (auto) 0 10 ^3/uL (0-0.2); Eosinophils # (auto) 0 10 ^3/uL (0-0.8); Hemoglobin 8.8 g/dL (13.5-17.5); Lymphocytes # (auto) 0.6 10 ^3/uL (0.4-5.4); Mean Corpuscular Volume 77.4 fL (80.0-100.0); Monocytes # (auto) 0.2 10 ^3/uL (0-1.3); Neutrophils # (auto) 3.7 10 ^3/uL (1.6-8.6); Nucleated Red Blood Cells % 0.1 %; Platelet Count (auto) 180 10^3/uL (140-450); White Blood Cell 4.5 10^3/uL (4.4-10.8)
[2020-12-12 04:50] LABS: Basophils % (auto) 0.2 % (0.0-2.0); Hematocrit 27.4 % (41.0-53.0); Lymphocytes % (auto) 12.5 % (10.0-50.0); Mean Corpuscular Hemoglobin 24.8 pg (28.0-32.0); Mean Corpuscular Hgb Conc. 32.1 g/dL (32.0-36.0); Monocytes % (auto) 5.5 % (0.0-12.0); Neutrophils % (auto) 81.8 % (37.0-80.0); Red Blood Cells 3.54 10^6/uL (4.5-5.90); Red Cell Distribution Width 19.9 % (11.8-14.3)
[2020-12-12 05:04] LABS: Albumin 1.8 g/dL (3.4-5.0); Anion Gap 0 (5-15); Blood Urea Nitrogen 18 mg/dL (7-18); Calcium 7.7 mg/dL (8.5-10.1); Carbon Dioxide 38 mmol/L (21-32); Chloride 106 mmol/L (98-107); Glucose 173 mg/dL (74-106); Magnesium 2.1 mg/dL (1.6-2.6); Potassium 3.9 mmol/L (3.5-5.1); Sodium 144 mmol/L (136-145)
[2020-12-12 05:08] LABS: Alanine Aminotransferase 28 U/L (16-61); Alkaline Phosphatase 181 U/L (45-117); Aspartate Aminotransferase 18 U/L (15-37); Bilirubin, Total 0.5 mg/dL (0.2-1.0); GFR African American 872 mL/min; GFR Non-African American 721 mL/min; Phosphorus 3.2 mg/dL (2.5-4.90); Total Protein 5.1 g/dL (6.4-8.2)
[2020-12-12] MEDS: PIPERACILLIN-TAZO 4.5GM 100 ML IV SCH ×2 (06:18→14:00)
[2020-12-12] MEDS: ALBUTEROL SULF 2.5 MG/0.5ML(0.5%) NEB SOLN NEB SCH ×2 (06:30→13:35)
[2020-12-12] MEDS: IPRATROPIUM BROM 0.5 MG/2.5ML INH SOL NEB SCH ×2 (06:30→13:35)
[2020-12-12] MEDS: VANCOMYCIN 1GM/250ML 250 ML IV SCH (07:00)
[2020-12-12] MEDS: LEVOTHYROXINE SODIUM 100 MCG/5 ML INJ IV SCH (08:22)
[2020-12-12] MEDS: ALBUMIN 25% 100 ML IV SCH (08:23)
[2020-12-12] MEDS: DexAMETHasone SOD PHOS 10MG/1ML VIAL INJ IV SCH (08:23)
[2020-12-12] MEDS: FAMOTIDINE (10MG/ML) 2ML VL IV SCH (08:24)
[2020-12-12] MEDS ORDERED: MORPHINE SULF INJ 2 MG/ML SYRINGE 1ML IV PRN (15:15)
[2020-12-12] MEDS ORDERED: LORazepam 2MG/ML-1ML VIAL IV PRN (15:15)
[2020-12-12] MEDS ORDERED: TPN PER PHARMACY IV NR ×9 (20:00)
== END 2020-12-12 20:46 | DRG 207 ==
LOC: ER 15:11 → EDBD 15:11 → OVERFLOW 15:12 → ICU WEST 11-25 14:55
PROVIDERS: ADMIT Hospitalist; ATTEND Hospitalist
PROC: 5A1955Z Respiratory Ventilation, Greater than 96 Consecutive Hours (ICD-10-PCS; principal; 2020-11-15)
PROC: 0BH17EZ Insertion of Endotracheal Airway into Trachea, Via Natural or Artificial Opening (ICD-10-PCS; 2020-11-15)
PROC: XW033E5 Introduction of Remdesivir Anti-infective into Peripheral Vein, Percutaneous Approach, New Technology Group 5 (ICD-10-PCS; 2020-11-15)
PROC: 5A12012 Performance of Cardiac Output, Single, Manual (ICD-10-PCS; 2020-11-16)
DX: U07.1 COVID-19 (principal); J12.82 Pneumonia due to coronavirus disease 2019; G93.41 Metabolic encephalopathy; E43 Unspecified severe protein-calorie malnutrition; J96.21 Acute and chronic respiratory failure with hypoxia; E87.2 Acidosis; J44.0 Chronic obstructive pulmonary disease with (acute) lower respiratory infection; E87.0 Hyperosmolality and hypernatremia; G93.1 Anoxic brain damage, not elsewhere classified; E11.52 Type 2 diabetes mellitus with diabetic peripheral angiopathy with gangrene; T87.54 Necrosis of amputation stump, left lower extremity; I46.9 Cardiac arrest, cause unspecified; I25.10 Atherosclerotic heart disease of native coronary artery without angina pectoris; E78.5 Hyperlipidemia, unspecified; E03.9 Hypothyroidism, unspecified; Z51.5 Encounter for palliative care; Z66 Do not resuscitate; Z68.21 Body mass index [BMI] 21.0-21.9, adult; F17.210 Nicotine dependence, cigarettes, uncomplicated; I11.0 Hypertensive heart disease with heart failure; I50.9 Heart failure, unspecified; Z89.512 Acquired absence of left leg below knee; Z89.612 Acquired absence of left leg above knee; Z90.49 Acquired absence of other specified parts of digestive tract; I35.0 Nonrheumatic aortic (valve) stenosis; E11.65 Type 2 diabetes mellitus with hyperglycemia
CPT/HCPCS: 36415; 36600; 70450; 71045; 73620; 80053; 80202; 80320; 81001; 82040; 82140; 82728; 82805; 82962; 83036; 83605; 83615; 83735; 83880; 84100; 84439; 84443; 84478; 84484; 85007; 85025; 85027; 85379; 85610; 85730; 86141; 86850; 86900; 86901; 87040; 87077; 87081; 87086; 87186; 87205; 87426; 93306; 93926; 94002; 94003; 94640; 95819; 99291; G0378; J0131; J1100; J1815; J2001; J2250; J2405; J2543; J2704; J3480; J3490; J7060; J7131; P9047